=== PATIENT | female | born 1960 | race Caucasian/White ===

== ENCOUNTER → 2024-02-09 08:56 | Outpatient (REF) | payer OTHER, SELFPAY | LOC: RAD 08:56 | PROVIDERS: ATTENDING PHYSICIAN Surgery Vascular Surgery; FAMILY PHYSICIAN Family Medicine | DX: I77.9 Disorder of arteries and arterioles, unspecified (principal) | CPT/HCPCS: 93922; 93925; 93978 ==

== ENCOUNTER 2024-05-24 16:38 | Emergency (ER) | payer OTHER, SELFPAY ==
[2024-05-24 16:44] VITALS: BP 149/75
[2024-05-24 17:07] LABS: % Basophils 0.5 % (0-2); % Eosinophils 1.3 % (0-6); % Immature Granulocytes 0.2 % (0-0.5); % Lymphocytes 26.9 % (20.5-51.1); % Monocytes 5.2 % (1.7-9.3); % Neutrophils 65.9 % (42.2-75.2); Absolute Eosinophils 0.1 10^3/uL (0-0.7); Absolute Lymphocytes 2.3 10^3/uL (1.2-3.4); Absolute Monocytes 0.5 10^3/uL (0.1-0.6); Absolute Neutrophils 5.7 10^3/uL (1.4-6.5); Hematocrit 40.2 % (37.0-47.0); Hemoglobin 14.3 g/dL (12.0-16.0); Mean Corp Hgb Conc. 35.6 g/dL (33.0-37.0); Mean Corpuscular Hgb 32.9 pg (27.0-31.0); Mean Corpuscular Volume 92.6 fL (81.0-99.0); Mean Platelet Volume 11.1 fL (7.4-10.4); Nucleated Red Blood Cells % 0 %; Platelet Count 225 10^3/uL (130-400); Red Blood Cell Count 4.34 10^6/uL (4.20-5.40); White Blood Cell Count 8.6 10^3/uL (4.8-10.8)
[2024-05-24 17:29] LABS: ALT (SGPT) 23 U/L (0-35); AST (SGOT) 18 U/L (14-36); Albumin 3.5 g/dl (3.5-5.0); Alkaline Phosphatase 115 U/L (38-126); Blood Urea Nitrogen 41 mg/dl (7-17); Carbon Dioxide 23 mmol/L (22-30); Chloride 103 mmol/L (98-107); Glucose 346 mg/dl (70-99); Potassium 4.5 mmol/L (3.5-5.1); Sodium 139 mmol/L (135-145); Total Bilirubin 0.8 mg/dl (0.2-1.3); Total Protein 6.4 g/dl (6.3-8.2); eGFR 50.23
[2024-05-24 18:04] VITALS: BP 138/67
--- NOTE | 2024-05-24 22:53 | ED.GENMED ---
History of Present Illness
General
Chief Complaint: Blood Sugar Problem
Source: patient
Exam Limitations: none
Time Seen by Provider: 05/24/24 17:19
Nursing documentation reviewed up to this point in time: agreed with
History of Present Illness
History of Present Illness:
Patient states she had routine labs drawn by PCP on Tuesday. States she received a call today from the office to come to ED, her BS was >400, HgA1c 12. State she had been on Metformin, Novolog and Lantas until last year. States she was testing
her BS frequently and 'didn't need medication anymore.' Brought self to ED today. No complaints.
Past History
Past History
ED Past Medical History: Asthma, CAD, HTN, Hypercholesterolemia, NIDDM, Psychiatric (Depression, ADHD) and Other (Knee problems, meningioma, migraines, ED)
ED Past Surgical History: Brain (Meningioma removal)
Social History
Tobacco: Smoker
Alcohol: None
Drug: None
Living: with family
Review of Systems
Review of Systems
Allergies reviewed?: Yes
All Other Systems: ROS reviewed and negative except as documented in HPI and ROS
Constitutional: Reports no symptoms
Respiratory: Reports no symptoms
Cardiac: Reports no symptoms
ABD/GI: Reports no symptoms
: Reports no symptoms
Musculoskeletal: Reports no symptoms
Skin: Reports no symptoms
Neurological: Reports no symptoms
Psychiatric: Reports no symptoms
Phy Exam
General Physical Exam
General Presentation: well appearing and no apparent distress
General age: appears stated age
General Skin: warm and dry
General Habitus: normal
General Mental: alert
Musculoskeletal Exam
Musculoskeletal Exam: full ROM
Skin Exam
Skin Exam: normal color, warm/dry and no rash
Psychiatric Exam
Psychiatric Exam: normal mood/affect
Course
Orders/Labs/Results
Orders:
Orders
05/24/24 16:59
CMP [Comprehensive Metabolic Panel] Urgent
Complete Blood Count/With Diff Urgent
Abnormal Lab Results
05/24/24
16:59
MCH 32.9 H pg
(27.0-31.0)
MPV 11.1 H fL
(7.4-10.4)
BUN 41 H mg/dl
(7-17)
Creatinine 1.2 H mg/dL
(0.6-1.0)
Glucose 346 H mg/dl
(70-99)
05/24/24 16:59
05/24/24 16:59
Vital Signs
Initial and Last Documented VS:
Initial Vital Signs
Temp Pulse Resp BP Pulse Ox
98.2 F 77 18 149/75 95
05/24/24 16:44 05/24/24 16:44 05/24/24 16:44 05/24/24 16:44 05/24/24 16:44
Last Documented Vital Signs
Temp Pulse Resp BP Pulse Ox
98.2 F 71 18 138/67 95
05/24/24 16:44 05/24/24 18:05 05/24/24 18:05 05/24/24 18:04 05/24/24 18:05
*Critical Care Note
Total Time (30-74mins, 75-104mins- exclusive of procedures): Not Applicable
Update Note
Update Note:
BS 349 in ED, nonfasting. Discussed presentation with her PCP Dr. Luis. She is asymptomatic in dept. WIll discharge home now and she will follow up in office with Dr. Luis in AM to restart her medications. Patient is agreeable to plan.
ED Attending Note
-
Portions of this chart may have been created with voice recognition software.� Occasional wrong word or��sound alike� substitutions may have occurred due to the inherent limitations of voice recognition software.
Discharge Plan
Departure
Patient Disposition: Home (Routine Discharge)
Date of Disposition: 05/24/24
Time of Disposition: 18:11
Patient with high blood pressure during this ER visit?: No
Condition: Good
Covid-19: Not Applicable
Discharge Problem:
Hyperglycemia
Instructions: Type 2 Diabetes (DC)
Prescriptions:
No Action
atorvastatin 80 MG tablet
80 mg PO HS
dextroamphetamine-amphetamine 10 MG tablet
20 mg PO TID
Patient Comments:
01/20/21: Per PDMP, last filled 01/08/21 #90 for 30 days
paroxetine HCl 20 MG tablet
40 mg PO DAILY
aspirin 81 MG tablet,chewable
81 mg PO DAILY
cholecalciferol (vitamin D3) 2,000 UNITS tablet
2,000 units PO DAILY
sennosides [senna] 8.6 mg Tablet
8.6 mg PO HS Qty: 1 0RF
albuterol sulfate 90 mcg/actuation Hfa Aerosol Inhaler
2 puff inhalation R Q4HPRN PRN (Reason: SOB/wheezing) Qty: 1 0RF
calcium carbonate-vitamin D3 [Oyster Shell Calcium-Vit D3] 500 mg-5 mcg (200 unit) Tablet
500 mg PO TID Qty: 1 0RF
Spiriva Respimat 2.5 mcg/actuation Mist
2 puff inhalation R DAILY Qty: 1 0RF
gabapentin 100 mg Capsule
300 mg PO TID Qty: 90 0RF
insulin aspart U-100 [Novolog FlexPen U-100 Insulin] 100 unit/mL (3 mL) Insulin Pen
12 unit SC AC Qty: 15 0RF
acetaminophen 500 mg Tablet
1,000 mg PO TID@0700,1300,2000 PRN (Reason: pain) Qty: 100 0RF
amoxicillin-pot clavulanate 875-125 mg Tablet
1 tab PO Q12 Qty: 6 0RF
oxycodone 5 mg Tablet
5 mg PO Q4HPRN PRN (Reason: moderate or severe pain) Qty: 20 0RF
budesonide-formoterol [Symbicort] 160-4.5 mcg/actuation Hfa Aerosol Inhaler
2 puff inhalation R BID Qty: 10.2 0RF
Xarelto 2.5 mg Tablet
2.5 mg PO BID Qty: 60 0RF
(DME) lancets Misc
See Rx Instructions .Route Qty: 200 0RF
Rx Instructions:
As directed
(DME) pen needle, diabetic [BD Ultra-Fine Becky Pen Needle] 32 gauge x 5/32' needle
See Rx Instructions .Route Qty: 200 0RF
Rx Instructions:
As directed
(DME) Contour Next Test Strips Strip
See Rx Instructions .Route Qty: 200 0RF
Rx Instructions:
As directed
insulin glargine [Lantus Solostar U-100 Insulin] 100 unit/mL (3 mL) insulin pen
29 unit SC QPM Qty: 15 0RF
Referrals:
Balwinder Luis, DO [Family Provider] - Tomorrow
Activity Restrictions/Additional Instructions:
As we discussed, you will need to restart your diabetic medications. Dr. Luis will see you in the office tomorrow. Please call the office in the AM for your appointment time.
Interventions
Interventions:
*Risk Screen - Suicide Last Done: 05/24/24 18:39
*General Assessment Last Done: 05/24/24 18:39
*Neglect/Abuse Screening Last Done: 05/24/24 18:39
ED- Fall Risk Assessment Last Done: 05/24/24 18:40
*Nursing Disposition Last Done: 05/24/24 18:40
ED- Neurological Assessment Last Done: 05/24/24 18:39
Discharge Date and Time
Discharge Date/Time: 05/24/24 18:41
Print Language: KAZAKH
== END 2024-05-24 18:41 | disposition home or self-care (01) ==
LOC: EMR 16:38
PROVIDERS: EMERGENCY PHYSICIAN Emergency Medicine; FAMILY PHYSICIAN Family Medicine
DX: E11.65 Type 2 diabetes mellitus with hyperglycemia (principal); F17.200 Nicotine dependence, unspecified, uncomplicated
CPT/HCPCS: 99283; 80053; 85025

== ENCOUNTER 2024-10-04 16:48 | Inpatient (IN) | payer MEDICARE, SELFPAY ==
[2024-10-04] VITALS (13 sets, daily range): BP systolic 116–196; BP diastolic 72–160
[2024-10-04 13:45] LABS: COVID-19 Antigen Negative (Negative)
--- NOTE | 2024-10-04 14:12 | ED.GENMED ---
History of Present Illness
General
Chief Complaint: Weakness
Source: patient
Exam Limitations: none
Time Seen by Provider: 10/04/24 14:00
History of Present Illness
History of Present Illness:
63yoF with a history of coronary artery disease, peripheral artery disease, type 2 diabetes, hyperlipidemia, and COPD presenting for evaluation of generalized weakness. Patient has been sick for about 2 weeks with cough, fatigue, body aches,
subjective fevers, and decreased appetite. Patient states 'it feels like I am dying.' Her sister whom she lives with is currently hospitalized with influenza A. She is hypoxic on initial exam although she does not feel short of breath.
Past History
Past History
ED Past Medical History: Asthma, CAD, HTN, Hypercholesterolemia, NIDDM, Psychiatric (Depression, ADHD) and Other (Knee problems, meningioma, migraines, ED)
ED Past Surgical History: Brain (Meningioma removal)
Social History
Tobacco: Smoker
Alcohol: None
Drug: None
Living: with family
Phy Exam
General Physical Exam
General Presentation: mild distress
General Skin: warm and dry
General Habitus: normal
General Mental: alert
General Hydration: dry mucous membranes
ENT Exam
ENT Exam: normocephalic
Cardiovascular Exam
Cardiovascular Exam: regular rate/rhythm and no murmur
Pulmonary Exam
Pulmonary Exam: decreased breath sounds and other (Decreased breath sounds with faint expiratory wheezes. Mild-moderate increased WOB although patient able to speak in full sentences. )
Neurological Exam
Neurological Exam: alert
Carmina Coma Scale
Eye Opening: Spontaneous
Verbal Response: Oriented
Motor Response: Obeys Commands
GCS Total Score: 15
Skin Exam
Skin Exam: normal color and warm/dry
Psychiatric Exam
Psychiatric Exam: anxious
Course
Orders/Labs/Results
Orders:
Orders
10/04/24 12:59
Chest [CR Chest - 2 Views ] Urgent
Comment:
Reason For Exam: cough
10/04/24 13:10
COVID-19 Antigen Urgent
Source: Nasal Swab
Influenza A+B Rapid Molecular Urgent
DOM Source: Nasal Swab
Specimen Description:
10/04/24 14:10
0.9% Sodium Chloride 1000 ml [Nss] 1,000 ml IV BOLUS
Ipratropium/Albuterol Sulfate [Duoneb] 3 ml INH R NOW STA
10/04/24 14:17
Complete Blood Count/With Diff Urgent
Comprehensive Metabolic Panel Urgent
Magnesium Urgent
Troponin I Urgent
10/04/24 14:43
Electrocardiogram (*1) Urgent
Reason for Study: Shortness of Breath
EKG- Treatment ONCE
10/04/24 15:16
CefTRIAXone [Rocephin] 2,000 mg IV NOW STA
Doxycycline [Vibramycin] 100 mg PO NOW STA
10/04/24 15:19
Dexamethasone Sod Phosphate [Decadron] 10 mg IV NOW STA
10/04/24 15:23
Oseltamivir Phosphate [Tamiflu] 75 mg PO NOW STA
10/04/24 16:[address] Non Medication Order As Directed
Physician Order: please TT me when med rec complete
Above order entered?: Yes
10/04/24 16:08
Ipratropium/Albuterol Sulfate [Duoneb] 3 ml .ROUTE .STK-MED ONE
10/04/24 16:09
Ipratropium/Albuterol Sulfate [Duoneb] 3 ml INH R NOW ONE
High Flow Oxygen Therapy [O2 Therapy] [RESP] Urgent
Titrate/Wean O2 to maintain O2 sat greater than (%): 91
10/04/24 16:14
Levalbuterol [Xopenex 0.63 mg Inhalant Solution] 0.63 mg INH R NOW STA
Xopenex Reason for Use As Directed
Reason for ordering Xopenex instead of Albuterol: tachycardia
10/04/24 16:16
PULMONARY CONSULT Urgent
Consulting Provider: Don Carlson
Was physician already notified: Yes
10/04/24 16:20
Ondansetron Injectable [Zofran] 4 mg IV NOW STA
10/04/24 16:22
Admit/Transfer Patient As Directed
Co-Sign Provider:
Level of Care: Inpatient admission
Assign to:: IMU- Intermediate Care
Physician / Group: Barb Salas
Diagnosis: hypoxic resp failure, influenza
Reason for Hospitalization: hypoxic resp failure, influenza
Expected length of stay greater than two midnights?: Yes
ELOS- Estimated Length of Stay in days: 5
I certify the patient meets the requirements for IP care: Yes
PRN Pain Medication Management As Directed
May give lesser potent ordered pain med per pt: Yes
preference::
Protocol:: Medication orders for pain may be administered in a
manner that supports deferring to patient preference
when the pt is:
- Requesting an ordered lesser potent pain medication.
Least to most potent pain medications are defined
as: acetaminophen < NSAID < tramadol < opioids
(morphine, oxycodone, hydromorphone).
- Requesting a lesser dose of the same medication IF
ORDERED.
- Requesting a less intrusive route of administration
if both routes are prescribed by the provider (PO <
IV).
10/04/24 16:24
Code Status As Directed
Resuscitation Status: Full Code
10/04/24 16:37
ABG [Arterial Blood Gas] Urgent
%Oxygen/Room Air: 83
Abnormal Lab Results
10/04/24 10/04/24
14:17 16:37
WBC 13.0 H 10^3/uL
(4.8-10.8)
MPV 11.0 H fL
(7.4-10.4)
Abs Immat Gran (auto) 0.1 H 10^3/uL
(0-0.05)
Absolute Neuts (auto) 10.8 H 10^3/uL
(1.4-6.5)
Immature Gran % 0.8 H %
(0-0.5)
Neutrophils % 82.9 H %
(42.2-75.2)
Lymphocytes % 11.4 L %
(20.5-51.1)
pH 7.22 L
(7.35-7.45)
pCO2 52 H mmHg
(32-35)
pO2 119 H mmHg
(83-108)
ABG O2 Sat (Measured) 99.8 H %
(94-98)
Chloride 96 L mmol/L
(98-107)
Carbon Dioxide 32 H mmol/L
(22-30)
BUN 35 H mg/dl
(7-17)
Creatinine 1.3 H mg/dL
(0.6-1.0)
Glucose 182 H mg/dl
(70-99)
Calcium 8.3 L mg/dl
(8.4-10.2)
Alkaline Phosphatase 151 H U/L
(38-126)
Albumin 3.3 L g/dl
(3.5-5.0)
10/04/24 14:17
10/04/24 14:17
Vital Signs
Initial and Last Documented VS:
Initial Vital Signs
Temp Pulse Resp BP Pulse Ox
98.0 F 78 18 143/79 88
10/04/24 12:56 10/04/24 12:56 10/04/24 12:56 10/04/24 12:56 10/04/24 12:56
Last Documented Vital Signs
Temp Pulse Resp BP Pulse Ox
98.0 F 110 39 151/99 96
10/04/24 12:56 10/04/24 17:15 10/04/24 17:15 10/04/24 16:33 10/04/24 17:15
MDM/Problems Addressed
Differential Diagnosis Includes:
63yoF here with fever, cough, fatigue x 2 weeks. Sister currently admitted with the flu. Hx of COPD. Oxygen saturation 88% in triage and 83% during initial exam. Patient placed on 4L NC, not oxygen dependent at baseline. She appears fatigued with
increased WOB although is able to speak in full sentences. Differential diagnosis includes but is not limited to: influenza, other viral illness, pneumonia, COPD exacerbation
Initial ED plan: Check cardiac labs, COVID/flu swab, EKG, and CXR. DuoNeb and IV fluid bolus.
*Critical Care Note
Total Time (30-74mins, 75-104mins- exclusive of procedures): Not Applicable
Update Note
Update Note:
Patient is positive for influenza A. White count is 13. Chest x-ray shows bilateral interstitial pneumonia. IV Rocephin and doxycycline ordered to cover for superimposed bacterial pneumonia. Given hypoxia, patient admitted for further
management. Patient on 4L NC at time of admission.
ED Attending Note
-
Portions of this chart may have been created with voice recognition software.� Occasional wrong word or��sound alike� substitutions may have occurred due to the inherent limitations of voice recognition software.
Discharge Plan
Departure
Patient Disposition: Admit
Date of Disposition: 10/04/24
Time of Disposition: 15:22
Presentation/result/management discussed w/ accepting MD/DO: Hospitalist
Discharge Problem:
Influenza A, Acute hypoxic respiratory failure, Interstitial pneumonia
Interventions
Interventions:
*Risk Screen - Suicide Last Done: 10/04/24 12:56
*General Assessment Last Done: 10/04/24 12:56
*Neglect/Abuse Screening Last Done: 10/04/24 12:56
ED- Fall Risk Assessment Last Done: 10/04/24 14:06
*ED COVID-19 Vaccine History Last Done: 10/04/24 12:56
ED- Cardiac Assessment Last Done: 10/04/24 14:06
ED- Neurological Assessment Last Done: 10/04/24 14:06
ED- Pulmonary Assessment Last Done: 10/04/24 14:06
[2024-10-04] MEDS: NSS 1000 IV ×2 (14:17→23:04)
[2024-10-04] MEDS: DUONEB 3 ML INH ×2 (14:18→16:18)
[2024-10-04 14:26] LABS: % Basophils 0.5 % (0-2); % Immature Granulocytes 0.8 % (0-0.5); % Lymphocytes 11.4 % (20.5-51.1); % Monocytes 4.4 % (1.7-9.3); % Neutrophils 82.9 % (42.2-75.2); Absolute Basophils 0.1 10^3/uL (0-0.2); Absolute Immature Granulocytes 0.1 10^3/uL (0-0.05); Absolute Lymphocytes 1.5 10^3/uL (1.2-3.4); Absolute Monocytes 0.6 10^3/uL (0.1-0.6); Absolute Neutrophils 10.8 10^3/uL (1.4-6.5); Hemoglobin 15.4 g/dL (12.0-16.0); Mean Corp Hgb Conc. 33.5 g/dL (33.0-37.0); Mean Corpuscular Hgb 30.6 pg (27.0-31.0); Mean Corpuscular Volume 91.5 fL (81.0-99.0); Nucleated Red Blood Cells % 0 %; Platelet Count 281 10^3/uL (130-400); Red Blood Cell Count 5.03 10^6/uL (4.20-5.40); Red Cell Dist. Width 12.6 % (11.5-14.5)
[2024-10-04 14:40] LABS: ALT (SGPT) 15 U/L (0-35); AST (SGOT) 23 U/L (14-36); Albumin 3.3 g/dl (3.5-5.0); Alkaline Phosphatase 151 U/L (38-126); Blood Urea Nitrogen 35 mg/dl (7-17); Calcium 8.3 mg/dl (8.4-10.2); Carbon Dioxide 32 mmol/L (22-30); Chloride 96 mmol/L (98-107); Glucose 182 mg/dl (70-99); Potassium 3.7 mmol/L (3.5-5.1); Sodium 138 mmol/L (135-145); eGFR 45.63
[2024-10-04 14:52] LABS: Troponin I < 0.012 ng/ml
[2024-10-04 14:57] LABS: Magnesium 1.9 mg/dl (1.6-2.3)
[2024-10-04] MEDS: VIBRAMYCIN 100 MG PO (15:43)
[2024-10-04] MEDS: DECADRON 10 MG IV (15:44)
[2024-10-04] MEDS: ROCEPHIN 2000 MG IV (15:44)
[2024-10-04] MEDS: TAMIFLU 75 MG PO (15:44)
--- NOTE | 2024-10-04 15:55 | HPS.HSE ---
Addendum entered and electronically signed by Barb Salas MD 10/04/24 17:10:
Case discussed with Dr. Carlson
patient now on 100% O2 - will broaden antibiotics to Vanc/Cefepime/Azithro
change IV Decadron to Solumedrol
schedule duonebs q 4 hours to overnight - levalubterol/atrovent - to be adjusted tomorrow
Addendum entered and electronically signed by Barb Salas MD 10/04/24 16:41:
*IV Decadron 4mg q 8 hours ordered
Addendum entered and electronically signed by Barb Salas MD 10/04/24 16:40:
per famiy patient stopped Gabapentin on her own, therefore will not order here.
Original Note:
Family Physician
-
Family Physician: Balwinder Luis
Chief Complaint
-
cough, fever and weakness
History of Present Illness
Ms. Shelia Hernandes is a 63 yo woman with hx CAD, PAD, COPD, HTN, HLD, NIDDM, CKD III, GERD presents to the ER with generalized weakness, body aches and fevers.
During my examination patient is working hard to breathe. She states she has been feeling sick x 10 days - 'everything hurts' She is currently nauseated, no vomiting. Her sister is currently hospitalized with the flu.
Prior to my exam patient got up to use the bathroom and had diarrhea.
Medical History
Past Medical History
Past Medical History: Reports Other
Additional Past Medical History:
Past medical history reviewed:
Diabetes mellitus
Chronic narcotic dependent
Migraine
Mood disorder
COPD
Chronic smoking
Chronic kidney disease stage III
Chronic lower back pain
Multiple sclerosis
Hypertension
Dyslipidemia
Obesity
Vitamin D deficiency
ADHD
Meningioma
Atrophic right kidney
Coronary artery disease status post 2 stent
GERD
Right foot drop
Surgical history:
Cardiac cath
D&C
Tubal ligation
Meningioma resection in 2015
Social history: Lives at home with the family, smokes a pack a day and denies any alcohol or drug and ambulate with a walker.
Family history: Positive for hypertension, coronary artery disease, stroke and diabetes.
Past Surgical History: Reports Other
Social History
Tobacco: Former Smoker
Family History
Family History: Not pertinent and Other
Allergies / Home Medications
Allergies reflects when Allergies were last updated in [facility]
Home Medications with original date entered in [facility]
Allergy/Medication List:
*awaiting med rec
Review of Systems
-
History Source: Patient
A 12 point ROS was completed and negative except as noted: Yes
Physical Exam
Vital Signs
Vital Signs
Temp Pulse Resp BP Pulse Ox
98.0 F 77 21 172/86 94
10/04/24 12:56 10/04/24 15:15 10/04/24 15:15 10/04/24 15:00 10/04/24 15:15
Physical Exam
General: Other (patient appears tachypneic, in distress )
HEENT: PERRLA
Respiratory: Wheezes
Cardiac: S1/S2 and Tachycardia
GI: Soft and Non Tender
Musculoskeletal: Other (clubbing)
Skin: Warm and Dry; No Rash
Neuro: AO x 3
Psych: Calm
Laboratory Results
-
10/04/24 14:17
10/04/24 14:17
Laboratory Results
Total Bilirubin 1.0 mg/dl (0.2-1.3) 10/04/24 14:17
AST 23 U/L (14-36) 10/04/24 14:17
ALT 15 U/L (0-35) 10/04/24 14:17
Alkaline Phosphatase 151 U/L (38-126) H 10/04/24 14:17
Troponin I < 0.012 ng/ml 10/04/24 14:17
Data Reviewed
-
Diagnostic Radiology: Report Reviewed by me
Lab Data: Labs Reviewed by me
Impression/Plan
-
Ms. Shelia Hernandes is a 63 yo woman with hx CAD, PAD, COPD, HTN, HLD, NIDDM, CKD III, GERD presents to the ER with generalized weakness, fevers; found to be positive for Influenza A with hypoxic resp failure and increased work of breathing.
Triage VS: T 98, P 78, RR 18, BP 143/79, SpO2 83% RA
LABS: WBC 13, Hg 15.4, PLT 281, Na 138, K+ 3.7, Cl 96, CO2 32, BUN 35, Cr 1.3 (baseline), Glucose 182, Mag 1.9, T. Bili 1.0, AST 23, ALT 15, alk Phos 151, Trop < 0.012
CXR
IMPRESSION:
Subtle increased interstitial markings with peribronchial thickening within both lungs, which likely represents bilateral interstitial pneumonia. Patient has positive influenza test.
COVID negative
Influenza A positive
MAR: Decadron, Ceftriaxone/Doxy, Duonebs, NS 1L x 1; Tamiflu 75mg x 1
Acute Hypoxic Respiratory Failure
Influenza A positive
Concern for Superimposed Bacterial Pneumonia
COPD, acute exacerbation
Smoking Hx
-patient given additional duonebs and placed on High Flow in the ER with improvement in work of breathing
-admit to IMU
-continue high flow
-Pulmonary consulted
-s/p Tamiflu 75mg in ER; continue 30mg PO BID for CKD dosing
-continue antibiotics for likely superimposed bacterial infection with Ceftriaxone/Doxycycline
-clear liquid diet for now
-IV Zofran PRN for nausea
-gentle IVF overnight
NIDDM
-hold LABOR SPECIALIST Jardiance and Metformin for now
-ISS low
CAD - LABOR SPECIALIST aspirin/statin
Chronic Pain, Opiate Dependence
-lower dose LABOR SPECIALIST oxycodone - 5mg PRN
Depression - LABOR SPECIALIST Paxil
ADD - LABOR SPECIALIST Adderall
DVT PPx hep subQ
FULL CODE - confirmed on admission
Total Critical Care Time 60 minutes. I was immediately available to the patient and staff. I personally examined, reviewed labs, diagnostic images/reports, interpretations, treatment plans, discussed patient care with other providers and family
or caregivers (if patient is unable to make decisions), entered orders as appropriate and documented the medical record.
--- NOTE | 2024-10-04 16:19 | EDRN ---
@1550 pt yelling that she needed to use the bathroom. pt refusing to use bedpan. pt assisted to bedside commode by ECT. @ that time pt denies SOB or MEREDITH. pt spo2 95% on 4 NC. pt when on commode became extremely tachypneic, mora in color, had large
loose BM, diaphoretic. pt swiftly placed back in bed. pt yelling at staff for her ice pack, pt redirected and made aware of her critical O2. pt spo2 80% on 4L NC. pt placed on NRB. As this RN went to notify , MD Salas entered room. order for duo
neb given. pt also on 6L NC under neb treatment d.t hypoxia and tachypnea. RT paged for HFNC. EKG completed during this episode. after a few minutes pt states breathing is getting better, color improving, tachypnea improving, spo2 improving.
RT placed pt on HFNC 55L @ 100% O2.
--- NOTE | 2024-10-04 16:34 | PHANOTE ---
med rec note- patient said she stopped her Xarelto 2.5mg bid but ecw has her taking it as of 07/03/2024. no current fills for med
[2024-10-04 16:47] LABS: B.E. -7.2 mmol/L; HCO3 21.3 mmol/L (21-28); O2 Saturation % 99.8 % (94-98); PCO2 52 mmHg (32-35); PO2 119 mmHg (83-108); pH 7.22 (7.35-7.45)
--- NOTE | 2024-10-04 17:02 | CON.PUL ---
Consultation
Consultation Request
Date/Time Consultation Requested: 10/04/2024 - 161
Date/Time Consultation Performed: 10/04/2024 - 163
Requesting Provider: Dr. Salas
Performing Provider: Dr. Carlson
Reason for Consultation: SOB/Hypoxia/Flu/PNA
Medical History
-
Chief Complaint: Cough, weakness, SOB
History of Present Illness:
63-year-old female with a past medical history of COPD, depression, proteinuria, CKD, chronic lower back pain, multiple sclerosis, hypertension, hypercholesterolemia, vitamin D deficiency, ADHD, history of meningioma s/p resection (2015), DM type
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 Patient lives with her sister who was admitted last night for the flu. She been feeling sick for
about 1-1/2 weeks. Been having aches and pains, shortness of breath and coughing. Her cough is been productive of mucus (does not know the color). She says that her cough is more dry currently. Her shortness of breath progressed on the morning
prior to arrival. Regarding her history of COPD she does not follow with a electric screw driver operator. In the ER she was afebrile to 90 �F, pulse rate 78, breathing at 18 breaths/min, BP 143/79 saturating 88% on room air, and sats improved to 95% with 4 L/min.
Unfortunately she continued to have shortness of breath and ended up being transition to high flow nasal cannula. Initial labs showed mild leukocytosis to 13, Hb 15.4, creatinine 1.3, glucose 182, troponin negative at <0.012, COVID-19 antigen
negative and flu swab showed she was positive for influenza A. CXR showed prominent interstitial markings with peribronchial thickening within both lungs. This is suspicious for bilateral interstitial pneumonia. In the ER she was given
ceftriaxone, Tamiflu, doxycycline, Decadron 10 mg, DuoNebs and IVF with NS 0.9% x1L. FiO2 requirements unfortunately gi to 100% and pulmonary service consulted for additional management. Patient being admitted to the IMU.
When I saw the patient she was in bed, lethargic but answering my questions appropriately, and on high flow nasal cannula at 50 L/min, FiO2: 100%. She was saturating 95% with heart rate 109 and BP 151/99. She currently denies chest pain, GÓMEZ,
diarrhea, fevers or chills.
PMHx: Migraine headaches, COPD, depression, subnephrotic proteinuria, CKD, tympanic sclerosis, chronic bilateral lower back pain, history of MS, hypertension, hypercholesterolemia, obesity, vitamin D deficiency, ADHD, history of meningioma, atrophic
right kidney, CAD s/p stenting x 2, GERD, DM type II, right foot drop, history of tobacco use
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
Past Medical History
Past Medical History: Other (Above as per HPI)
Past Surgical History: Other (Above as per HPI)
Social History
Tobacco: Former Smoker (Former smoker, smoked 2 PPD x 30-35 years; still vaping nicotine)
Alcohol: None
Drug: None
Personal:
Family History
Family History: Cancer (Father: Esophageal cancer), Diabetes (Sibling) and Other (Mother: CVA, aneurysm; sibling: Multiple sclerosis)
Allergies / Home Medications
Allergies
Allergy/AdvReac Type Severity Reaction Status Date / Time
codeine Allergy Unknown Verified 10/04/24 12:58
ibuprofen Allergy Hives Verified 10/04/24 16:21
naproxen sodium [From Aleve] Allergy Hives Verified 10/04/24 12:58
Home Medications
�Medication �Instructions �Recorded �Confirmed �Last Taken �Type
aspirin 81 mg chewable tablet 81 mg PO DAILY Blood clot 01/20/21 10/04/24 01/20/21 History
prevention/tx
atorvastatin 80 mg tablet 80 mg PO HS High cholesterol 01/20/21 10/04/24 01/19/21 History
albuterol sulfate 90 mcg/actuation 2 puff inhalation R Q4HPRN PRN 10/26/22 10/04/24 Unknown Rx
aerosol inhaler SOB/wheezing #1 g
dextroamphetamine-amphetamine 20 20 mg PO TID Neurological Condition 10/04/24 10/04/24 Unknown History
mg tablet (Adderall)
empagliflozin 25 mg tablet 25 mg PO DAILY Diabetes 10/04/24 10/04/24 Unknown History
(Jardiance)
gabapentin 300 mg capsule 300 mg PO TID Pain 10/04/24 10/04/24 Unknown History
metformin 500 mg tablet,extended 1,000 mg PO BID Diabetes 10/04/24 10/04/24 Unknown History
release 24 hr
oxycodone 15 mg tablet 15 mg PO Q6HPRN PRN severe pain 10/04/24 10/04/24 Unknown History
paroxetine HCl 40 mg tablet (Paxil) 60 mg PO DAILY Mental Health 10/04/24 10/04/24 Unknown History
Review of Systems
-
History Source: Patient
All other systems: Negative unless noted
Vitals / Labs / Diagnostic Testing
Vital Signs
Temp Pulse Resp BP Pulse Ox
98.0 F 102 23 132/102 98
10/04/24 17:35 10/04/24 18:20 10/04/24 18:20 10/04/24 18:00 10/04/24 18:20
Lab Data
10/04/24 14:17
10/04/24 14:17
Laboratory Results
10/04/24 10/04/24
16:37 18:06
pH 7.22 L 7.36
pCO2 52 H 37 H
pO2 119 H 143 H
HCO3 21.3 20.9 L
O2 Delivery Level %oxygen/room air 83
Microbiology
10/04/24 13:10 Nasal Swab Influenza Types A & B ([facility]) - Final
Influenza A Positive, NAAT
Diagnostic Testing:
Physical Exam
-
HEENT: Normocephalic and Anicteric
Cardiovascular: Irregular Rhythm, Rub (negative), Peripheral Edema (negative) and Other (Normal rate)
Respiratory: Wheeze (Occasional wheezing heard in the upper lobes bilaterally), Rales (negative), Rhonchi (negative), Accessory Resp Muscle Use (mild) and Other (Grossly diminished breath sounds bilaterally)
GI: Soft, Non Distended, Non Tender and Normal Bowel Sounds
Neurology: Tremors (negative) and Other (Lethargic but answering all questions appropriately)
Skin: Warm and Dry
General: Respiratory Distress (mild), Fever (negative) and Chills (negative)
Assessment
-
Assessment: 63-year-old female with a past medical history of COPD, depression, proteinuria, CKD, chronic lower back pain, multiple sclerosis, hypertension, hypercholesterolemia, vitamin D deficiency, ADHD, history of meningioma s/p resection
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 Patient lives with her sister who was admitted last night for the flu. She been
feeling sick for about 1-1/2 weeks. Been having aches and pains, shortness of breath and coughing. Her cough is been productive of mucus (does not know the color). She says that her cough is more dry currently. Her shortness of breath progressed
on the morning prior to arrival. Regarding her history of COPD she does not follow with a electric screw driver operator. In the ER she was afebrile to 90 �F, pulse rate 78, breathing at 18 breaths/min, BP 143/79 saturating 88% on room air, and sats improved to
95% with 4 L/min. Unfortunately she continued to have shortness of breath and ended up being transition to high flow nasal cannula. Initial labs showed mild leukocytosis to 13, Hb 15.4, creatinine 1.3, glucose 182, troponin negative at <0.012,
COVID-19 antigen negative and flu swab showed she was positive for influenza A. CXR showed prominent interstitial markings with peribronchial thickening within both lungs. This is suspicious for bilateral interstitial pneumonia. In the ER she was
given ceftriaxone, Tamiflu, doxycycline, Decadron 10 mg, DuoNebs and IVF with NS 0.9% x1L. FiO2 requirements unfortunately gi to 100% and pulmonary service consulted for additional management. Patient being admitted to the IMU.
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
meningioma, atrophic right kidney, CAD s/p stenting x 2, GERD, DM type II, right foot drop, history of tobacco use
Impression:
#Acute respiratory failure with hypoxia + hypercapnia requiring high flow nasal cannula
#Acute viral pneumonia due to influenza A with bacterial superinfection
#COPD exacerbation due to above
#Leukocytosis likely due to above
#DM type II c/b hyperglycemia (last HbA1c: 12.1 on 10/08/2022)
#CKD (baseline creatinine 1.3�1.5)
#Former tobacco use disorder with COPD
#Continued nicotine vape use
#Multiple sclerosis
#Hypertension
#CAD s/p stenting x 2
#GERD
#Depression
Plan:
- Continue with high flow nasal cannula and titrate FiO2 to keep SpO2 at 88-95%
- Aspiration precautions with keeping HOB >30-45�
- Xopenex + Atrovent q4hr with prn doses in between for breakthrough symptoms
- Start systemic steroids with Solu-Medrol 40 mg IV q8hr
- Maintain euglycemia while on high-dose steroids with goal BG >100 and <180; re-check A1C
- Initial blood gas showed she was acutely hypercapnic with pH 7.22, pCO2 52. Ideally would place her onto BiPAP but due to her lethargic mental status with nausea, this is currently contraindicated. Blood gas was repeated about a 1.5 hours later
showing improvement in pCO2 going down to 37 with pH 7.36; hold off on BiPAP for now until mentation improves and nausea resolves and continue trending blood gas to ensure pH + pCO2 remained stable
- Tamiflu X 5 days
- Broad-spectrum antibiotics, currently on cefepime/IV vancomycin/azithromycin
- Trend QTc while on Zithromax (417ms today)
- Check urine antigens for Legionella + strep pneumonia
- Check blood cultures and check sputum culture if she can provide a decent sample
- Check MRSA swab and if negative then DC IV vanco
- Check procal for trending power
- Antitussants prn
- Mucolytics
- Antiemetics prn; monitor QTc
- Incentive spirometer once she improves
- Replete electrolytes with K>4, Mg>2
- DVT ppx: HSQ - raise to q8hr
- High risk situation: Admit to the IMU; low threshold to intubate her if hypoxia deteriorates further; currently she is full code
Pulmonary service will continue to follow along. Outpatient pulmonary office follow-up will also be arranged.
Data:
CXR 10/04/2024: Subtle increased interstitial markings with peribronchial thickening within both lungs, which likely represents bilateral interstitial pneumonia. Patient has positive influenza test.
Total time spent today was 76 minutes for this encounter. Time includes reviewing laboratory test/imaging results, reviewing pertinent medical records, obtaining and reviewing medical history, performing an appropriate exam, ordering medications,
tests and procedures. Time also includes documentation of this encounter, coordinating patient care and communicating with other healthcare professionals. Total time does not include separately billed tests performed on this date of service.
[2024-10-04] MEDS: ZOFRAN 4 MG IV (18:03)
[2024-10-04] MEDS: ZITHROMAX INFUSION 250 IV (18:03)
[2024-10-04 18:12] LABS: B.E. -3.9 mmol/L; HCO3 20.9 mmol/L (21-28); O2 Saturation % 99.9 % (94-98); PCO2 37 mmHg (32-35); PO2 143 mmHg (83-108); pH 7.36 (7.35-7.45)
[2024-10-04 18:14] LABS: O2 Therapy %Oxygen/Room Air 83
[2024-10-04] MEDS: ATROVENT NEBULES 0.5 MG INH ×2 (19:25→22:51)
[2024-10-04] MEDS: XOPENEX 0.63 MG INHALANT SOLUTION INH ×2 (19:26→22:51)
[2024-10-04] MEDS: ATROVENT NEBULES INH (19:26)
--- NOTE | 2024-10-04 19:29 | PHA.VAN.IN ---
Assessment
- Assessment
Renal Function: Appears similar to baseline (05/24/24 SCR = 1.2)
Concomitant Antimicrobials: CEFEPIME
- Previous Dosing Experience
Previous Regimen: 1250MG IV Q12H
Date of Regimen: 10/10/22
Provided Trough of: 15.3 PREDICTED
Provided AUC of: 522 PREDICTED
Patient's SCR is: Similar to previous dosing experience (10/10/22 SCR = 1.2)
Patient's weight is: Decreased compared to previous dosing experience (10/10/22 WT = 110.8 KG)
AUC Dosing Plan
- Dosing Variables
Dosing Weight (kg): 84.1
Dosing CrCl (ml/min): 48
Vd coefficient (L/kg): 0.7
- Empiric Dosing
Initial / Loading Dose: 2GM
Maintenance Regimen: 1250MG IV Q24H
Estimated AUC (mcg*h/mL): 496
Estimated Peak (mcg*h/mL): 32.5
Estimated Trough (mcg/ml): 12
Estimated Half Life (H): 15.7
Pharmacokinetics Vancomycin I
- -
Patient Age: 63
Patient Sex: Female
Vancomycin Day #: 1
Indication: Pulmonary/Respiratory
Requesting Provider: SPRING
Height / Weight:
Height 5 ft 7 in
Actual Weight 84.1 kg
- Vital Signs / Lab Results
Temp Pulse Resp BP Pulse Ox
98.0 F 102 23 132/102 98
10/04/24 17:35 10/04/24 18:20 10/04/24 18:20 10/04/24 18:00 10/04/24 18:20
Lab Results - Hematology
10/04/24
14:17
WBC 13.0 H
Lab Results - Chemistry
10/04/24
14:17
BUN 35 H
Creatinine 1.3 H
Albumin 3.3 L
Microbiology Results
10/04/24 13:10 Influenza Types A & B ([facility]) - Final
Nasal Swab Influenza A Positive, NAAT
[2024-10-04] MEDS: VANCOCIN 540 MG IV (19:36)
[2024-10-04] MEDS: MUCINEX 600 MG PO (20:51)
[2024-10-04] MEDS: SOLU-MEDROL PF 40 MG IV (23:07)
[2024-10-04] MEDS: HEPARIN 5000 UNITS SC (23:08)
[2024-10-04] MEDS: LIPITOR 80 MG PO (23:20)
[2024-10-04] MEDS: STERILE WATER FOR INJECTION 10 ML IV (23:20)
[2024-10-04] MEDS: MAXIPIME 2000 MG IV (23:20)
[2024-10-04 23:31] LABS: Glucose - Point of Care 242 mg/dl (70-99)
--- NOTE | 2024-10-04 23:45 | PTCARENOTE ---
Resumed care of pt as an IMU hold. Pt AAOx3, HR in the 80's in NSR with frequent PVC's on the monitor. POX 99% on Hi flow 50L/55%. Lungs dec with in/ex wheezes, course. Non productive occasional cough. + bowel, round obese abd. Pt reports loose
stools yesterday. Pt inc of urine. Brief in place. Weak cold pedal pulses. Right wrist int infusing NSS @60ml/hr as ordered. Pt resting comfortably at this time. Denies any complaints, will continue to monitor.
[2024-10-05] VITALS (15 sets, daily range): BP systolic 137–168; BP diastolic 65–92
[2024-10-05] MEDS: XOPENEX 0.63 MG INHALANT SOLUTION INH ×3 (04:09→11:53)
[2024-10-05] MEDS: ATROVENT NEBULES 0.5 MG INH ×3 (04:09→11:53)
[2024-10-05] MEDS: SOLU-MEDROL PF 40 MG IV ×3 (05:28→21:32)
[2024-10-05] MEDS: VANCOCIN 275 MG IV (05:28)
[2024-10-05 05:34] LABS: Venous Blood Gas B.E. -1.6 mmol/L (-4 to +4); Venous Blood Gas HCO3 23.7 mmol/L (22-27); Venous Blood Gas O2 Sat % 99.7 %; Venous Blood Gas pCO2 41 mmHg (35-48); Venous Blood Gas pH 7.37 (7.32-7.43); Venous Blood Gas pO2 165 mmHg (30-50)
[2024-10-05 05:39] LABS: % Basophils 0.5 % (0-2); % Eosinophils 1.2 % (0-6); % Immature Granulocytes 1.4 % (0-0.5); % Lymphocytes 8.2 % (20.5-51.1); % Monocytes 1.5 % (1.7-9.3); % Neutrophils 87.2 % (42.2-75.2); Absolute Basophils 0.1 10^3/uL (0-0.2); Absolute Eosinophils 0.2 10^3/uL (0-0.7); Absolute Immature Granulocytes 0.2 10^3/uL (0-0.05); Absolute Lymphocytes 1.1 10^3/uL (1.2-3.4); Absolute Monocytes 0.2 10^3/uL (0.1-0.6); Absolute Neutrophils 11.4 10^3/uL (1.4-6.5); Hematocrit 44.9 % (37.0-47.0); Hemoglobin 15.4 g/dL (12.0-16.0); Mean Corp Hgb Conc. 34.3 g/dL (33.0-37.0); Mean Corpuscular Hgb 30.9 pg (27.0-31.0); Mean Corpuscular Volume 90.2 fL (81.0-99.0); Mean Platelet Volume 11.1 fL (7.4-10.4); Nucleated Red Blood Cells % 0 %; Platelet Count 319 10^3/uL (130-400); Red Blood Cell Count 4.98 10^6/uL (4.20-5.40); Red Cell Dist. Width 12.6 % (11.5-14.5)
[2024-10-05 06:02] LABS: ALT (SGPT) 12 U/L (0-35); AST (SGOT) 17 U/L (14-36); Albumin 2.8 g/dl (3.5-5.0); Alkaline Phosphatase 141 U/L (38-126); Blood Urea Nitrogen 43 mg/dl (7-17); Carbon Dioxide 23 mmol/L (22-30); Chloride 102 mmol/L (98-107); Estimated Creatinine Clearance 37 ml/min; Glucose 220 mg/dl (70-99); Magnesium 1.8 mg/dl (1.6-2.3); Phosphorus 5.4 mg/dl (2.5-4.5); Potassium 4.1 mmol/L (3.5-5.1); Sodium 138 mmol/L (135-145); Total Bilirubin 0.5 mg/dl (0.2-1.3); eGFR 33.07
[2024-10-05 06:09] LABS: NT-proBNP 1470 pg/ml
[2024-10-05 06:12] LABS: Procalcitonin 1.83 ng/ml (0.0-0.25)
[2024-10-05 06:49] LABS: Hepatitis C Antibody Negative (Negative)
--- NOTE | 2024-10-05 08:06 | PHA.VAN.FU ---
Vancomycin Assessment / Plan
- Assessment
Renal Function: SCR Increasing
WBC's are: Stable
In the past 24 hrs, patient has been: Afebrile
Concomitant Antimicrobials: cefepime, azithromycin
- Dosing Plan
Adjust Regimen to: dosing by level
Dosing Comments: received 2g load 10/04 19:36 + 1250mg 10/05 05:28
- Monitoring Plan
Random Level: 10/06 0600
MRSA Screen: Ordered per protocol
- Follow Up
Pharmacy will continue to follow.
Vancomycin Follow UP
- -
Patient Age: 63
Patient Sex: Female
Vancomycin Day #: 2
Indication: Pulmonary/Respiratory
Requesting Provider: Dr. Salas
Pertinent Antimicrobial Allergies:
no pertinent antibiotic allergies
Height / Weight:
Height 5 ft 7 in
Actual Weight 84.1 kg
Pertinent Past Medical History: flu +
- Vital Signs / Lab Results
Temp Pulse Resp BP Pulse Ox
97.5 F 75 17 147/81 98
10/05/24 04:00 10/05/24 05:50 10/05/24 05:50 10/05/24 05:00 10/05/24 05:50
Lab Results - Hematology
10/04/24 10/05/24
14:17 05:09
WBC 13.0 H 13.0 H
Lab Results - Chemistry
10/04/24 10/05/24
14:17 05:10
BUN 35 H 43 H
Creatinine 1.3 H 1.7 H
Estimated Creat Clear 37
Albumin 3.3 L 2.8 L
Microbiology Results
10/04/24 13:10 Influenza Types A & B ([facility]) - Final
Nasal Swab Influenza A Positive, NAAT
[2024-10-05 09:10] LABS: Glucose - Point of Care 210 mg/dl (70-99)
[2024-10-05] MEDS: MUCINEX 600 MG PO ×2 (09:11→21:31)
[2024-10-05] MEDS: HEPARIN 5000 UNITS SC ×2 (09:11→15:57)
[2024-10-05] MEDS: LOW STRENGTH ASPIRIN 81 MG PO (09:11)
--- NOTE | 2024-10-05 09:35 | W.PN.PUL3 ---
Today's Communication / Plan
-
Antibiotics with cefepime + Zithromax; okay to DC IV vancomycin given MRSA swab is negative
Solu-Medrol, currently 40 mg IV every 8 hours � tomorrow can hopefully switch to 40 mg IV every 12hr if she is continuing to do well
Titrate down O2 flow rate while keeping SpO2 88-95%
Mucolytics
Trend procal
Follow-up cultures and check sputum culture if she can produce a decent sample
Tamiflu for 5 days
Start nocturnal BiPAP and trend blood gas to assure hypercapnia remained stable
Nicotine patch given she vapes nicotine
Downgrade to telemetry
Pulmonary service will continue to follow along and outpatient follow-up will be arranged
Assessment
-
Assessment: 63-year-old female with a past medical history of COPD, depression, proteinuria, CKD, chronic lower back pain, multiple sclerosis, hypertension, hypercholesterolemia, vitamin D deficiency, ADHD, history of meningioma s/p resection
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 Patient lives with her sister who was admitted last night for the flu. She been
feeling sick for about 1-1/2 weeks. Been having aches and pains, shortness of breath and coughing. Her cough is been productive of mucus (does not know the color). She says that her cough is more dry currently. Her shortness of breath progressed
on the morning prior to arrival. Regarding her history of COPD she does not follow with a management developer. In the ER she was afebrile to 90 �F, pulse rate 78, breathing at 18 breaths/min, BP 143/79 saturating 88% on room air, and sats improved to
95% with 4 L/min. Unfortunately she continued to have shortness of breath and ended up being transition to high flow nasal cannula. Initial labs showed mild leukocytosis to 13, Hb 15.4, creatinine 1.3, glucose 182, troponin negative at <0.012,
COVID-19 antigen negative and flu swab showed she was positive for influenza A. CXR showed prominent interstitial markings with peribronchial thickening within both lungs. This is suspicious for bilateral interstitial pneumonia. In the ER she was
given ceftriaxone, Tamiflu, doxycycline, Decadron 10 mg, DuoNebs and IVF with NS 0.9% x1L. FiO2 requirements unfortunately gi to 100% and pulmonary service consulted for additional management. Patient being admitted to the IMU.
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
meningioma, atrophic right kidney, CAD s/p stenting x 2, GERD, DM type II, right foot drop, history of tobacco use
Impression:
#Acute respiratory failure with hypoxia + hypercapnia requiring high flow nasal cannula --> now on midflow nasal cannula
#Acute viral pneumonia due to influenza A with bacterial superinfection
#COPD exacerbation due to above
#Leukocytosis likely due to above
#DM type II c/b hyperglycemia (last HbA1c: 12.1 on 10/08/2022)
#DUTCH on CKD (baseline creatinine 1.3�1.5)
#Former tobacco use disorder with COPD
#Continued nicotine vape use
#Multiple sclerosis
#Hypertension
#CAD s/p stenting x 2
#GERD
#Depression
Plan:
- Patient is doing much better both subjectively and objectively, now off of high flow nasal cannula FiO2 100% and down to mid flow nasal cannula, currently at 7 L/min
- Continue supplemental O2 and titrate O2 flow rate to keep SpO2 at 88-95%
- Aspiration precautions with keeping HOB >30-45�
- Ok to change xopenex + Atrovent q4hr to DuoNebs QID with prn doses in between for breakthrough symptoms
- Continue systemic steroids with Solu-Medrol 40 mg IV q8hr v--> can hopefully start to wean tomorrow to 40mg IV q12hr
- Maintain euglycemia while on high-dose steroids with goal BG >100 and <180; A1C: 7.7 (10/05/2024)
- Initial blood gas showed she was acutely hypercapnic with pH 7.22, pCO2 52. She was lethargic and nauseous initially in the ER so BiPAP was not an option given it was contraindicated. Repeat repeat blood gas 1.5 hours later showed improvement
with pH 7.36, pCO2 37. This has remained stable with blood gas this morning on 10/05/2024, with pH 7.37 and pCO2 41. Continue to trend to assure her hypercapnia remained stable
- Recommend to start nocturnal BiPAP - she is agreeable to this
- Tamiflu X 5 days
- Broad-spectrum antibiotics, currently on cefepime/IV vancomycin/azithromycin
- Trend QTc while on Zithromax (417ms today)
- Check urine antigens for Legionella + strep pneumonia
- Follow up blood cultures (drawn 10/05/2024) and check sputum culture if she can provide a decent sample
- MRSA swab is negative --> recommend to DC IV vanco
- Procal elevated at 1.83 � continue to monitor for trending power
- Antitussants prn
- Mucolytics
- Given that she vapes nicotine, start nicotine patch 7mg
- Antiemetics prn; monitor QTc
- Incentive spirometer once she improves
- Replete electrolytes with K>4, Mg>2
- DVT ppx: HSQ
- Full Code
- She was admitted to the IMU on admission due to her severe hypoxia. Now that her hypoxia has improved and she is doing better, can downgrade to telemetry.
Pulmonary service will continue to follow along. Outpatient pulmonary office follow-up will also be arranged.
Data:
CXR 10/04/2024: Subtle increased interstitial markings with peribronchial thickening within both lungs, which likely represents bilateral interstitial pneumonia. Patient has positive influenza test.
Total time spent today was 36 minutes for this encounter. Time includes reviewing laboratory test/imaging results, reviewing pertinent medical records, obtaining and reviewing medical history, performing an appropriate exam, ordering medications,
tests and procedures. Time also includes documentation of this encounter, coordinating patient care and communicating with other healthcare professionals. Total time does not include separately billed tests performed on this date of service.
Subjective Data
-
Date of Service:
Date of Service: October 05, 2024
Chief Complaint: Pulmonary Follow Up
Subjective:
Patient seen and evaluated this morning. She is doing remarkably better, currently on 7 L/min via midflow nasal cannula, saturating 97% with heart rate 71 BP 146/65. Her shortness of breath has improved and she denies a cough. Also denies
nausea/vomiting, or abdominal pain. She actually has a good diet and wants to eat. Denies chest pain, fevers or chills.
Review of Systems
General: Other (Negative unless mentioned above)
Objective Data
Data Reviewed
Vital Signs / I&O / Oxygen:
Vital Signs
Temp Pulse Resp BP Pulse Ox
97.7 F 71 20 157/81 99
10/05/24 08:35 10/05/24 08:44 10/05/24 08:44 10/05/24 08:00 10/05/24 08:44
Intake and Output
10/04/24 10/05/24 10/06/24
06:59 06:59 06:59
Intake Total 1155 / 1155
Balance 1155 / 1155
SaO2 99
Nasal Cannula flow liters per 50
minute
Physical Exam
General: Respiratory Distress (negative), Comfortable, Chills (negative) and Sweats (negative)
HEENT: Normocephalic and Anicteric
Cardiovascular: S1-S2 and Peripheral Edema (negative)
Respiratory: Wheeze (Bilaterally), Crackles (Bilaterally), Rhonchi (Bilaterally), Non-Labored Respirations and Stridor (Bilaterally)
GI: Soft, Non Distended, Non Tender and Normal Bowel Sounds
Neurology: AO x 3 and Tremors (Bilaterally)
Skin: Warm, Dry, Cyanosis (Bilaterally) and Jaundice (Bilaterally)
Labs/Micro/Reports
Lab Data
10/05/24 05:09
10/05/24 05:10
Laboratory Results
10/04/24 10/04/24
16:37 18:06
pH 7.22 L 7.36
pCO2 52 H 37 H
pO2 119 H 143 H
HCO3 21.3 20.9 L
O2 Delivery Level %oxygen/room air 83
Microbiology
10/04/24 13:10 Nasal Swab Influenza Types A & B ([facility]) - Final
Influenza A Positive, NAAT
[2024-10-05] MEDS: NOVOLOG FLEXPEN-LOW RESISTANCE 2 UNITS SC (10:24)
[2024-10-05 10:39] LABS: Glycohemoglobin (HgbA1c) 7.7 % (4.0-5.6)
[2024-10-05] MEDS: ADDERALL PO (11:13)
[2024-10-05] MEDS: ADDERALL 20 MG PO ×2 (11:13→17:38)
[2024-10-05] MEDS: PAXIL 60 MG PO (11:14)
[2024-10-05] MEDS: TAMIFLU 30 MG PO ×2 (11:14→21:32)
--- NOTE | 2024-10-05 11:17 | PTCARENOTE ---
[place] Text to Dr. Hood about pt's continued loose/watery stools, asked if we want to send to lab for testing.
--- NOTE | 2024-10-05 11:25 | W.PN.HOSP.TC ---
Today's Communication/Plan
-
Transfer from IMU to telemetry
Continue with Tamiflu and empirical antibiotics
Continue with IV fluids till oral intake is adequate
Follow BMP in a.m.
Assessment / Plan
Assessment / Plan
Ms. Sehlia Hernandes is a 63 yo woman with hx CAD, PAD, COPD, HTN, HLD, NIDDM, CKD III, GERD presents to the ER with generalized weakness, fevers; found to be positive for Influenza A with hypoxic resp failure and increased work of breathing.
CXR
IMPRESSION:
Subtle increased interstitial markings with peribronchial thickening within both lungs, which likely represents bilateral interstitial pneumonia. Patient has positive influenza test.
COVID negative
Influenza A positive
Acute Hypoxic hypercapnic respiratory Failure
Influenza A positive
Interstitial pneumonia
COPD, acute exacerbation
Smoking Hx
-Patient with improved clinical picture and as well as oxygenation
-Continue with oxygen via nasal cannula and wean as able. Transfer for IMU level of care to telemetry.
-s/p Tamiflu 75mg in ER; continue 30mg PO BID for CKD dosing
-continue antibiotics pending culture data. Interstitial pneumonia suspect is probably viral. With no consolidation or lobar pneumonia doubt bacterial. Elevated procalcitonin may be function of renal failure.
-Advance diet
-Advised to quit smoking
DUTCH on chronic kidney disease stage III
Elevated creatinine since admission noted. Patient is also having loose stool since admission. Check for norovirus and C. difficile. Continue with IV fluid support till oral intake is adequate. Check BMP in AM.
NIDDM
-hold SCRAPER HAND Jardiance and Metformin for now
-ISS low
-Hemoglobin A1c 7.7
CAD - SCRAPER HAND aspirin/statin
Chronic Pain, Opiate Dependence
-lower dose SCRAPER HAND oxycodone - 5mg PRN
Depression - SCRAPER HAND Paxil
ADD - SCRAPER HAND Adderall
DVT PPx hep subQ
FULL CODE
Discussed with RN
Total time spent on today's encounter was 52 minutes which included time spent in counseling the patient/family regarding diagnosis and treatment plan as listed above, goals of care, and symptom management. Case was discussed with nursing staff,
specialists, and care coordinators/case management. All labs and imaging personally reviewed by me. Remainder the time spent in detailed review of previous records, lab data, imaging, and other medical provider documentation.
Anticipated Discharge: > 48 hours
Subjective/Interval History
-
Date of Service: October 05, 2024
Feeling improved.
Prior coming into the hospital she was feeling crappy, cough, cold sweats. Not much of shortness of breath but she was noted to be quite hypoxic.
Denies any chest pain.
No nausea vomiting or abdominal pain but since last evening she had 4 loose bowel movements which is new for her.
Her family is sick in fact her twin sister is also admitted to hospital with influenza infection.
Objective Data
-
Labs:
Laboratory Results
10/05/24 10/05/24
05:09 05:10
WBC 13.0 H
Hgb 15.4
Hct 44.9
Plt Count 319
Sodium 138
Potassium 4.1
Chloride 102
Carbon Dioxide 23
BUN 43 H
Creatinine 1.7 H
Glucose 220 H
Calcium 8.0 L
Total Bilirubin 0.5
AST 17
ALT 12
Alkaline Phosphatase 141 H
Vital Signs:
Vital Signs
Temp Pulse Resp BP Pulse Ox
98.9 F 73 18 144/81 97
10/05/24 11:18 10/05/24 11:15 10/05/24 11:15 10/05/24 11:00 10/05/24 11:18
I&O
10/04/24 10/05/24 10/06/24
06:59 06:59 06:59
Intake Total 1155 / 1155 240 / 240
Balance 1155 / 1155 240 / 240
Review of Systems
-
Cardiac: Denies Chest Pain
Abdomen/GI: Denies Abdominal Pain
Neuro: Denies Dizzy
Physical Exam
-
General: No Apparent Distress
HEENT: Moist Mucous Membranes
Respiratory: Wheezes (Bilateral), Non Labored Respirations and Other (Improved oxygenation-currently on nasal cannula at 6 L); Negative Crackles or Accessory Resp Muscle Use
Cardiac: Regular Rhythm and S1/S2; Negative Tachycardic
GI: Soft and Nontender
Musculoskeletal: No Edema
Neuro: AO x 3
Psych: Calm; Negative Confused
Data Reviewed
-
Labs: Labs Reviewed by me
[2024-10-05 11:48] LABS: Glucose - Point of Care 296 mg/dl (70-99)
--- NOTE | 2024-10-05 11:49 | PN.CDI ---
CDI
- -
CDI:
Physician Documentation Request
Admit Date: 10/04/24 16:48
Dear Doctor Erwin,
Clinical Indicators:
Patient admitted with Influenza A, pneumonia, and acute hypoxic/hypercapnic respiratory failure.
WBC on admission
10/04/24
14:17
WBC 13.0 H
HR/RR trend on admission:
10/04/24
16:00 10/04/24
17:00 10/04/24
18:00
Pulse 138 112 104
Resp Rate 32 30 29
10/04/24
19:00 10/04/24
20:00
Pulse 96 99
Resp Rate 22 25
Please clarify which of the following most accurately describes the status of the patient's infection:
Sepsis, POA
- Systemic manifestations of infection, with 2 or more SIRS criteria which include:
- Fever >100.4 degrees F or hypothermia < 96.8 degrees F
- Leukocytosis - WBC > 12,000 or leukopenia - WBC < 4,000 or > 10% bands
- Tachycardia > 90 beats per minute
- Tachypnea - RR > 20 breaths per minute or PaCO2 , 32mmHg
Source: Merck Manual 2013
Severe Sepsis with associated respiratory failure, POA
Influenza A Pneumonia Only, Without Systemic Illness
Other
Use of terms such as suspected, likely, concern for, or probable (associated with a specific diagnosis that is being evaluated, monitored, or treated as if it exists) are acceptable and can be coded in the inpatient setting, when documented at the
time of discharge.
Thank you,
Gracia Berger RN BSN
CDI Specialist
available via tiger text
Please use your independent medical judgment in providing your response.
[2024-10-05] MEDS: NOVOLOG FLEXPEN-LOW RESISTANCE 3 UNITS SC ×2 (13:07→17:38)
[2024-10-05] MEDS: NSS 1000 IV (13:14)
[2024-10-05] MEDS: MAXIPIME 2000 MG IV (13:17)
[2024-10-05] MEDS: STERILE WATER FOR INJECTION 10 ML IV (13:17)
[2024-10-05] MEDS: DUONEB 3 ML INH ×2 (15:42→19:37)
--- NOTE | 2024-10-05 16:08 | PTCARENOTE ---
Called [facility] and gave verbal report to receiving RN. Pt transported by quality control lab tech on stretcher, 4L midflow. Pt refused nicotine patch.
[2024-10-05 16:34] LABS: Glucose - Point of Care 259 mg/dl (70-99)
[2024-10-05] MEDS: ZITHROMAX INFUSION 250 IV (17:38)
--- NOTE | 2024-10-05 18:15 | PTCARENOTE ---
Received pt from ED at 16:20. Pt pulled over from stretcher to bed w/o incident. Pt AAOx3, able to make needs known. Tele box #6 applied. NSR on monitor. Lungs coarse with inspiratory wheeze, on 4LMF. Pt reported too weak to get up and use the
commode. Continent of bowel/bladder, used bedpan instead. Skin intact. NS@60ml/hr through R FA. IV zithromax hung. VSS. Call zaman and belongings within reach. Care ongoing.
[2024-10-05] MEDS: LIPITOR 80 MG PO (21:31)
[2024-10-05 21:39] LABS: Glucose - Point of Care 284 mg/dl (70-99)
[2024-10-06] VITALS (7 sets, daily range): BP systolic 114–181; BP diastolic 62–89; BMI 29.8
[2024-10-06] MEDS: HEPARIN 5000 UNITS SC ×4 (00:26→23:42)
[2024-10-06] MEDS: STERILE WATER FOR INJECTION 10 ML IV ×3 (00:27→23:42)
[2024-10-06] MEDS: MAXIPIME 2000 MG IV ×3 (00:27→23:42)
[2024-10-06] MEDS: SOLU-MEDROL PF 40 MG IV ×3 (06:04→23:42)
[2024-10-06] MEDS: NSS 1000 IV (06:04)
[2024-10-06 07:10] LABS: Hematocrit 37.7 % (37.0-47.0); Hemoglobin 12.9 g/dL (12.0-16.0); Mean Corp Hgb Conc. 34.2 g/dL (33.0-37.0); Mean Corpuscular Hgb 31.2 pg (27.0-31.0); Mean Corpuscular Volume 91.1 fL (81.0-99.0); Mean Platelet Volume 10.8 fL (7.4-10.4); Platelet Count 333 10^3/uL (130-400); Red Blood Cell Count 4.14 10^6/uL (4.20-5.40); Red Cell Dist. Width 12.8 % (11.5-14.5); White Blood Cell Count 12.4 10^3/uL (4.8-10.8)
[2024-10-06] MEDS: DUONEB 3 ML INH ×3 (07:20→15:55)
[2024-10-06 07:31] LABS: Blood Urea Nitrogen 45 mg/dl (7-17); Calcium 8.1 mg/dl (8.4-10.2); Carbon Dioxide 25 mmol/L (22-30); Chloride 106 mmol/L (98-107); Estimated Creatinine Clearance 40 ml/min; Glucose 203 mg/dl (70-99); Potassium 3.7 mmol/L (3.5-5.1); Sodium 140 mmol/L (135-145); eGFR 35.57
[2024-10-06 07:52] LABS: Vancomycin Random 18.5 ug/ml
[2024-10-06 08:16] LABS: Glucose - Point of Care 268 mg/dl (70-99)
[2024-10-06] MEDS: ADDERALL 20 MG PO ×3 (08:32→18:02)
[2024-10-06] MEDS: PAXIL 60 MG PO (08:32)
[2024-10-06] MEDS: MUCINEX 600 MG PO ×2 (08:34→20:31)
[2024-10-06] MEDS: LOW STRENGTH ASPIRIN 81 MG PO (08:34)
[2024-10-06] MEDS: TAMIFLU 30 MG PO ×2 (08:34→20:31)
[2024-10-06] MEDS: NOVOLOG FLEXPEN-LOW RESISTANCE 3 UNITS SC ×3 (08:36→18:04)
--- NOTE | 2024-10-06 09:46 | W.PN.PUL3 ---
Today's Communication / Plan
-
Antibiotics with cefepime + Zithromax; IV vancomycin DC'd given MRSA swab is negative
Solu-Medrol, currently 40 mg IV every 8 hours --> q12hr today
Titrate down O2 flow rate while keeping SpO2 88-95%
Mucolytics
Trend procal --> check tomorrow
Follow-up cultures and sputum culture (shows Adeline albicans � contaminant with no need to treat
Tamiflu for 5 days
Recommend to start nocturnal BiPAP and trend blood gas to assure hypercapnia remained stable --> she is refusing
Nicotine patch given she vapes nicotine --> refusing nicotine patch
Pulmonary service will continue to briefly follow along and outpatient follow-up will be arranged
Assessment
-
Assessment: 63-year-old female with a past medical history of COPD, depression, proteinuria, CKD, chronic lower back pain, multiple sclerosis, hypertension, hypercholesterolemia, vitamin D deficiency, ADHD, history of meningioma s/p resection
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 Patient lives with her sister who was admitted last night for the flu. She been
feeling sick for about 1-1/2 weeks. Been having aches and pains, shortness of breath and coughing. Her cough is been productive of mucus (does not know the color). She says that her cough is more dry currently. Her shortness of breath progressed
on the morning prior to arrival. Regarding her history of COPD she does not follow with a endoscopy support specialist. In the ER she was afebrile to 90 �F, pulse rate 78, breathing at 18 breaths/min, BP 143/79 saturating 88% on room air, and sats improved to
95% with 4 L/min. Unfortunately she continued to have shortness of breath and ended up being transition to high flow nasal cannula. Initial labs showed mild leukocytosis to 13, Hb 15.4, creatinine 1.3, glucose 182, troponin negative at <0.012,
COVID-19 antigen negative and flu swab showed she was positive for influenza A. CXR showed prominent interstitial markings with peribronchial thickening within both lungs. This is suspicious for bilateral interstitial pneumonia. In the ER she was
given ceftriaxone, Tamiflu, doxycycline, Decadron 10 mg, DuoNebs and IVF with NS 0.9% x1L. FiO2 requirements unfortunately gi to 100% and pulmonary service consulted for additional management. Patient being admitted to the IMU.
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
meningioma, atrophic right kidney, CAD s/p stenting x 2, GERD, DM type II, right foot drop, history of tobacco use
Impression:
#Acute respiratory failure with hypoxia + hypercapnia requiring high flow nasal cannula --> now off midflow nasal cannula and onto regular nasal cannula
#Acute viral pneumonia due to influenza A with bacterial superinfection
#COPD exacerbation due to above
#Leukocytosis likely due to above
#DM type II c/b hyperglycemia (last HbA1c: 12.1 on 10/08/2022)
#DUTCH on CKD (baseline creatinine 1.3�1.5)
#Former tobacco use disorder with COPD
#Continued nicotine vape use
#Multiple sclerosis
#Hypertension
#CAD s/p stenting x 2
#GERD
#Depression
Plan:
- Patient is doing much better both subjectively and objectively, now off of high flow nasal cannula FiO2 100% and down to 2L/min from mid flow nasal cannula
- Continue supplemental O2 and titrate O2 flow rate to keep SpO2 at 88-95%
- Aspiration precautions with keeping HOB >30-45�
- Change xopenex + Atrovent q4hr to DuoNebs QID with prn doses in between for breakthrough symptoms
- Continue systemic steroids with Solu-Medrol 40 mg IV q8hr v--> wean today to 40mg IV q12hr
- Maintain euglycemia while on high-dose steroids with goal BG >100 and <180; A1C: 7.7 (10/05/2024)
- Initial blood gas showed she was acutely hypercapnic with pH 7.22, pCO2 52. She was lethargic and nauseous initially in the ER so BiPAP was not an option given it was contraindicated. Repeat repeat blood gas 1.5 hours later showed improvement
with pH 7.36, pCO2 37. This has remained stable with blood gas on morning of 10/05/2024, with pH 7.37 and pCO2 41. Continue to trend to assure her hypercapnia remained stable
- Recommend to start nocturnal BiPAP - she was initially agreeable to this but has refused; she understands the risks of noncompliance including CO2 narcosis due to rising CO2 levels, hypoxia due to altered mental status with aspiration and .
I will DC the order now.
- Tamiflu X 5 days
- Broad-spectrum antibiotics, currently on cefepime + azithromycin; IV vanco DC'd due to negative MRSA swab
- Trend QTc while on Zithromax (417ms on 10/05/2024)
- Check urine antigens for Legionella + strep pneumonia
- Follow up blood cultures (drawn 10/05/2024); sputum culture from 10/05/2024 is growing Adeline albicans (likely contaminant � no need to treat)
- MRSA swab is negative --> recommend to DC IV vanco
- Procal elevated at 1.83 � continue to monitor for trending power
- Antitussants prn
- Mucolytics
- Given that she vapes nicotine, start nicotine patch 7mg --> she is refusing; I will DC this order
- Antiemetics prn; monitor QTc
- Incentive spirometer once she improves
- Replete electrolytes with K>4, Mg>2
- DVT ppx: HSQ
- Full Code
- She was admitted to the IMU on admission due to her severe hypoxia. Now that her hypoxia has improved and she is doing better, can downgrade to telemetry.
Pulmonary service will continue to briefly follow along. Outpatient pulmonary office follow-up will also be arranged.
Data:
CXR 10/04/2024: Subtle increased interstitial markings with peribronchial thickening within both lungs, which likely represents bilateral interstitial pneumonia. Patient has positive influenza test.
Total time spent today was 39 minutes for this encounter. Time includes reviewing laboratory test/imaging results, reviewing pertinent medical records, obtaining and reviewing medical history, performing an appropriate exam, ordering medications,
tests and procedures. Time also includes documentation of this encounter, coordinating patient care and communicating with other healthcare professionals. Total time does not include separately billed tests performed on this date of service.
Subjective Data
-
Date of Service:
Date of Service: October 06, 2024
Chief Complaint: Pulmonary Follow Up
Subjective:
Patient seen earlier today � late note entry. Patient seen this morning and she says she got poor sleep overnight as she was restless. Currently on 2 L/min and says her breathing is better today. Still has a mild dry cough. Denies abdominal
pain, nausea, vomiting, fevers or chills.
Review of Systems
General: Other (Negative unless mentioned above)
Objective Data
Data Reviewed
Vital Signs / I&O / Oxygen:
Vital Signs
Temp Pulse Resp BP Pulse Ox
98.7 F 72 20 164/81 98
10/06/24 08:18 10/06/24 08:18 10/06/24 08:18 10/06/24 08:18 10/06/24 08:18
Intake and Output
10/05/24 10/06/24 10/07/24
06:59 06:59 06:59
Intake Total 1155 / 1155 1160 / 1160
Balance 1155 / 1155 1160 / 1160
SaO2 98
Nasal Cannula flow liters per 2
minute
Physical Exam
General: Respiratory Distress (negative), Comfortable, Chills (negative) and Sweats (negative)
HEENT: Normocephalic and Anicteric
Cardiovascular: S1-S2 and Peripheral Edema (Trace lower extremity edema bilaterally)
Respiratory: Wheeze (Bilaterally), Crackles (negative), Rhonchi (negative), Non-Labored Respirations and Stridor (Bilaterally)
GI: Soft, Non Distended, Non Tender and Normal Bowel Sounds
Neurology: AO x 3 and Tremors (Bilaterally)
Skin: Warm, Dry, Cyanosis (Bilaterally) and Jaundice (Bilaterally)
Labs/Micro/Reports
Lab Data
10/06/24 06:55
10/06/24 06:55
Microbiology
10/05/24 05:10 Blood/Venous Blood Culture - Preliminary
No Growth in 24 hours- Final report to follow
10/05/24 16:07 Sputum Gram Stain - Preliminary
10/05/24 11:34 Feces/Stool C. difficile GDH Antigen & Toxins - Final
Negative for toxigenic C.difficile
10/05/24 11:34 Feces/Stool - Final
Negative for Norovirus GI and GII.
10/05/24 05:09 Nose Nasal Screen MRSA (PCR) - Final
MRSA not detected - performed by PCR methodology.
10/04/24 13:10 Nasal Swab Influenza Types A & B ([facility]) - Final
Influenza A Positive, NAAT
--- NOTE | 2024-10-06 11:43 | W.PN.HOSP.TC ---
Today's Communication/Plan
-
Continue Tamiflu
Continue with antibiotics
Decrease steroids
Wean oxygen as able
Assessment / Plan
Assessment / Plan
Ms. Shelia Hernandes is a 63 yo woman with hx CAD, PAD, COPD, HTN, HLD, NIDDM, CKD III, GERD presents to the ER with generalized weakness, fevers; found to be positive for Influenza A with hypoxic resp failure and increased work of breathing.
CXR
IMPRESSION:
Subtle increased interstitial markings with peribronchial thickening within both lungs, which likely represents bilateral interstitial pneumonia. Patient has positive influenza test.
COVID negative
Influenza A positive
Acute Hypoxic hypercapnic respiratory Failure
Influenza A positive
Interstitial pneumonia
COPD, acute exacerbation
Smoking Hx
-Patient with improved clinical picture and as well as oxygenation
-Continue with oxygen via nasal cannula and wean as able.
-s/p Tamiflu 75mg in ER; continue 30mg PO BID for CKD dosing
-continue antibiotics pending culture data. Interstitial pneumonia suspect is probably viral. With no consolidation or lobar pneumonia doubt bacterial. Elevated procalcitonin may be function of renal failure. MRSA swab negative-DC vancomycin
-Decrease methylprednisone dose
-Advised to quit smoking
DUTCH on chronic kidney disease stage III
Elevated creatinine since admission noted. Patient is also having loose stool since admission. Stools negative for C. difficile. Denies any further diarrhea. Improving creatinine. Follow BMP
NIDDM
-hold DROP FORGE OPERATOR Jardiance and Metformin for now
-ISS low
-Hemoglobin A1c 7.7
CAD - DROP FORGE OPERATOR aspirin/statin
Chronic Pain, Opiate Dependence
-lower dose DROP FORGE OPERATOR oxycodone - 5mg PRN
Depression - DROP FORGE OPERATOR Paxil
ADD - DROP FORGE OPERATOR Adderall
Patient is feeling anxious and she has used lorazepam in the past at home as needed for anxiety and request the same here.
DVT PPx hep subQ
FULL CODE
Anticipated Discharge: > 48 hours
Subjective/Interval History
-
Date of Service: October 06, 2024
Feeling improved. Oxygen down to 2 L.
Tells me that she is going to kick the habit of tobacco for good. She does not want to feel this way.
Objective Data
-
Labs:
Laboratory Results
10/06/24
06:55
WBC 12.4 H
Hgb 12.9
Hct 37.7
Plt Count 333
Sodium 140
Potassium 3.7
Chloride 106
Carbon Dioxide 25
BUN 45 H
Creatinine 1.6 H
Glucose 203 H
Calcium 8.1 L
Vital Signs:
Vital Signs
Temp Pulse Resp BP Pulse Ox
98.7 F 72 16 164/81 96
10/06/24 08:18 10/06/24 08:18 10/06/24 11:26 10/06/24 08:18 10/06/24 11:26
I&O
10/05/24 10/06/24 10/07/24
06:59 06:59 06:59
Intake Total 1155 / 1155 1160 / 1160
Balance 1155 / 1155 1160 / 1160
Review of Systems
-
Constitutional: Denies Fever or Chills
Respiratory: Reports Trouble Breathing (Improved)
Cardiac: Denies Chest Pain
Abdomen/GI: Denies Abdominal Pain, Nausea or Vomiting
Neuro: Denies Dizzy
Physical Exam
-
General: No Apparent Distress
HEENT: Moist Mucous Membranes
Respiratory: Wheezes and Non Labored Respirations; Negative Accessory Resp Muscle Use
Cardiac: Regular Rhythm and S1/S2
Neuro: AO x 3
Data Reviewed
-
Labs: Labs Reviewed by me
--- NOTE | 2024-10-06 11:45 | RESPNOTE ---
patient states she does not have a nebulizer unit for home treatments, requests assist in obtaining through insurance.
[2024-10-06] MEDS: ATIVAN 0.5 MG PO ×2 (12:09→20:31)
[2024-10-06 13:00] LABS: Glucose - Point of Care 259 mg/dl (70-99)
[2024-10-06 17:21] LABS: Glucose - Point of Care 288 mg/dl (70-99)
[2024-10-06] MEDS: ZITHROMAX INFUSION 250 IV (17:55)
--- NOTE | 2024-10-06 18:29 | PTCARENOTE ---
Chemotherapy completed. Pt tolerated well. No s/s of distress. IV site without any distress during infusing and post infusion. VSS
[2024-10-06] MEDS: DUONEB INH (20:03)
[2024-10-06] MEDS: LIPITOR 80 MG PO (20:31)
[2024-10-06 21:09] LABS: Glucose - Point of Care 293 mg/dl (70-99)
[2024-10-07 03:47] VITALS: BMI 29.4
[2024-10-07 03:50] VITALS: BP 178/85
[2024-10-07 06:52] LABS: Hematocrit 38.1 % (37.0-47.0); Hemoglobin 13.1 g/dL (12.0-16.0); Mean Corp Hgb Conc. 34.4 g/dL (33.0-37.0); Mean Corpuscular Volume 90.3 fL (81.0-99.0); Platelet Count 355 10^3/uL (130-400); Red Blood Cell Count 4.22 10^6/uL (4.20-5.40); Red Cell Dist. Width 12.5 % (11.5-14.5); White Blood Cell Count 9.9 10^3/uL (4.8-10.8)
[2024-10-07 07:20] LABS: Blood Urea Nitrogen 40 mg/dl (7-17); Calcium 8.5 mg/dl (8.4-10.2); Carbon Dioxide 28 mmol/L (22-30); Chloride 101 mmol/L (98-107); Estimated Creatinine Clearance 42 ml/min; Glucose 237 mg/dl (70-99); Sodium 139 mmol/L (135-145); eGFR 38.43
[2024-10-07 07:25] LABS: Procalcitonin 0.58 ng/ml (0.0-0.25)
[2024-10-07 07:25] LABS: Glucose - Point of Care 238 mg/dl (70-99)
[2024-10-07 07:59] VITALS: BP 169/76
[2024-10-07] MEDS: HEPARIN 5000 UNITS SC ×2 (08:11→16:18)
[2024-10-07] MEDS: PAXIL 60 MG PO (08:12)
[2024-10-07] MEDS: ADDERALL 20 MG PO ×3 (08:12→18:01)
[2024-10-07] MEDS: TAMIFLU 30 MG PO ×2 (08:12→20:32)
[2024-10-07] MEDS: MUCINEX 600 MG PO ×2 (08:13→20:32)
[2024-10-07] MEDS: LOW STRENGTH ASPIRIN 81 MG PO (08:13)
[2024-10-07] MEDS: NOVOLOG FLEXPEN-LOW RESISTANCE 2 UNITS SC (08:17)
[2024-10-07] MEDS: DUONEB 3 ML INH ×2 (08:48→11:38)
--- NOTE | 2024-10-07 09:12 | W.PN.HOSP.TC ---
Today's Communication/Plan
-
Check oxygen on room air and if okay will check for home O2 eval
PT eval
DC planning
Assessment / Plan
Assessment / Plan
Ms. Shelia Hernandes is a 63 yo woman with hx CAD, PAD, COPD, HTN, HLD, NIDDM, CKD III, GERD presents to the ER with generalized weakness, fevers; found to be positive for Influenza A with hypoxic resp failure and increased work of breathing.
CXR
IMPRESSION:
Subtle increased interstitial markings with peribronchial thickening within both lungs, which likely represents bilateral interstitial pneumonia. Patient has positive influenza test.
COVID negative
Influenza A positive
Acute Hypoxic hypercapnic respiratory Failure
Influenza A positive
Interstitial pneumonia
COPD, acute exacerbation
Smoking Hx
-Patient with improved clinical picture and as well as oxygenation. Check oxygen on room air.
-Continue with oxygen via nasal cannula and wean as able.
-s/p Tamiflu 75mg in ER; continue 30mg PO BID for CKD dosing
-continue antibiotics pending culture data. Interstitial pneumonia suspect is probably viral. With no consolidation or lobar pneumonia doubt bacterial. Elevated procalcitonin may be function of renal failure. MRSA swab negative-DCed vancomycin.
Repeat procalcitonin pending.
-Decrease methylprednisone dose-taper per pulmonary.
-Advised to quit smoking and patient seriously considering stopping tobacco use.
DUTCH on chronic kidney disease stage III
Elevated creatinine since admission noted. Patient is also having loose stool since admission. Stools negative for C. difficile. Denies any further diarrhea. Improving creatinine. Follow BMP
NIDDM
-hold BEDSPREAD INSPECTOR Jardiance and Metformin for now
-ISS low
-Hemoglobin A1c 7.7
CAD - BEDSPREAD INSPECTOR aspirin/statin
Chronic Pain, Opiate Dependence
-lower dose BEDSPREAD INSPECTOR oxycodone - 5mg PRN
Depression - BEDSPREAD INSPECTOR Paxil
ADD - BEDSPREAD INSPECTOR Adderall
Patient is feeling anxious and she has used lorazepam in the past at home as needed for anxiety and request the same here.
DVT PPx hep subQ
FULL CODE
Check oxygen on room air
PT eval
DC planning
Anticipated Discharge: Today
Subjective/Interval History
-
Date of Service: October 07, 2024
Patient is feeling improved. Less fatigued. Able to get out of the bed and use bathroom. Improved sore throat. Cough is also improving. Denies shortness of breath at rest. On lower FiO2 at 2 L of oxygen via nasal cannula currently
Objective Data
-
Labs:
Laboratory Results
10/07/24
06:07
WBC 9.9
Hgb 13.1
Hct 38.1
Plt Count 355
Sodium 139
Potassium 4.0
Chloride 101
Carbon Dioxide 28
BUN 40 H
Creatinine 1.5 H
Glucose 237 H
Calcium 8.5
Vital Signs:
Vital Signs
Temp Pulse Resp BP Pulse Ox
98.1 F 73 16 169/76 91
10/07/24 07:59 10/07/24 07:59 10/07/24 08:50 10/07/24 07:59 10/07/24 08:50
I&O
10/06/24 10/07/24 10/08/24
06:59 06:59 06:59
Intake Total 1160 / 1160 2690 / 2690
Balance 1160 / 1160 2690 / 2690
Review of Systems
-
Constitutional: Denies Fever or Chills
Cardiac: Denies Chest Pain
Abdomen/GI: Denies Abdominal Pain, Nausea or Vomiting
Neuro: Denies Dizzy or Headache
Physical Exam
-
General: Comfortable
Respiratory: Wheezes (Occasional wheeze) and Non Labored Respirations; Negative Accessory Resp Muscle Use
Cardiac: Regular Rhythm and S1/S2
Neuro: AO x 3
Data Reviewed
-
Labs: Labs Reviewed by me
--- NOTE | 2024-10-07 09:16 | W.PN.PUL3 ---
Today's Communication / Plan
-
Antibiotics with cefepime + Zithromax; IV vancomycin DC'd given MRSA swab is negative - rec'd to give 7 days total
Solu-Medrol, currently 40 mg IV every 8 hours --> q12hr yesterday --> wean tomorrow to prednisone taper starting at 40mg and reduce by 10mg every 5th day until off
Titrate down O2 flow rate while keeping SpO2 88-95%
Mucolytics
Procalcitonin is downtrending indicating we have source control
Follow-up cultures and sputum culture (shows Adeline albicans � contaminant with no need to treat)
Tamiflu for 5 days
Recommend to start nocturnal BiPAP and trend blood gas to assure hypercapnia remained stable --> she is refusing
Nicotine patch given she vapes nicotine --> refusing nicotine patch
Patient has markedly improved, now on room air breathing comfortably. No additional recommendations at this time. Pulmonary service will now sign off. Please reconsult if there are any additional questions/concerns, or if patient's respiratory
status deteriorates. Outpatient pulmonary office follow-up will also be arranged.
Assessment
-
Assessment: 63-year-old female with a past medical history of COPD, depression, proteinuria, CKD, chronic lower back pain, multiple sclerosis, hypertension, hypercholesterolemia, vitamin D deficiency, ADHD, history of meningioma s/p resection
(2014), DM type II, right foot drop, PAD s/p right�[employer]INE[employer], and history of tobacco use who presents with low energy, cough, shortness of breath and generalized weakness. Patient lives with her sister who was admitted last night for the flu. She been
feeling sick for about 1-1/2 weeks. Been having aches and pains, shortness of breath and coughing. Her cough is been productive of mucus (does not know the color). She says that her cough is more dry currently. Her shortness of breath progressed
on the morning prior to arrival. Regarding her history of COPD she does not follow with a investigator cash shortage. In the ER she was afebrile to 90 �F, pulse rate 78, breathing at 18 breaths/min, BP 143/79 saturating 88% on room air, and sats improved to
95% with 4 L/min. Unfortunately she continued to have shortness of breath and ended up being transition to high flow nasal cannula. Initial labs showed mild leukocytosis to 13, Hb 15.4, creatinine 1.3, glucose 182, troponin negative at <0.012,
COVID-19 antigen negative and flu swab showed she was positive for influenza A. CXR showed prominent interstitial markings with peribronchial thickening within both lungs. This is suspicious for bilateral interstitial pneumonia. In the ER she was
given ceftriaxone, Tamiflu, doxycycline, Decadron 10 mg, DuoNebs and IVF with NS 0.9% x1L. FiO2 requirements unfortunately gi to 100% and pulmonary service consulted for additional management. Patient being admitted to the IMU.
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
meningioma, atrophic right kidney, CAD s/p stenting x 2, GERD, DM type II, right foot drop, history of tobacco use
Impression:
#Acute respiratory failure with hypoxia + hypercapnia requiring high flow nasal cannula --> now on room air as of 10/07/2024
#Acute viral pneumonia due to influenza A with bacterial superinfection
#COPD exacerbation due to above
#Leukocytosis likely due to above - resolved
#DM type II c/b hyperglycemia (last HbA1c: 12.1 on 10/08/2022)
#DUTCH on CKD (baseline creatinine 1.3�1.5)
#Former tobacco use disorder with COPD
#Continued nicotine vape use
#Multiple sclerosis
#Hypertension
#CAD s/p stenting x 2
#GERD
#Depression
Plan:
- Patient is doing much better both subjectively and objectively, now off of high flow nasal cannula FiO2 100% and on room air as of 10/07/2024 down from midflow nasal cannula
- Keep SpO2 at 88-95%
- Aspiration precautions with keeping HOB >30-45�
- Changed xopenex + Atrovent q4hr to DuoNebs QID with prn doses in between for breakthrough symptoms
- Continue systemic steroids with Solu-Medrol 40 mg IV q8hr v--> weaned on 10/06 to 40mg IV q12hr --> wean tomorrow to prednisone taper starting at 40mg and reduce by 10mg every 5th day until off
- Maintain euglycemia while on high-dose steroids with goal BG >100 and <180; A1C: 7.7 (10/05/2024)
- Initial blood gas showed she was acutely hypercapnic with pH 7.22, pCO2 52. She was lethargic and nauseous initially in the ER so BiPAP was not an option given it was contraindicated. Repeat repeat blood gas 1.5 hours later showed improvement
with pH 7.36, pCO2 37. This has remained stable with blood gas on morning of 10/05/2024, with pH 7.37 and pCO2 41. Continue to trend to assure her hypercapnia remained stable
- Recommend to start nocturnal BiPAP - she was initially agreeable to this but has refused; she understands the risks of noncompliance including CO2 narcosis due to rising CO2 levels, hypoxia due to altered mental status with aspiration and .
I DC'd the order now.
- Tamiflu X 5 days
- Broad-spectrum antibiotics, currently on cefepime + azithromycin; IV vanco DC'd due to negative MRSA swab
- Trend QTc while on Zithromax (417ms on 10/05/2024)
- Check urine antigens for Legionella + strep pneumonia
- Follow up blood cultures (drawn 10/05/2024); sputum culture from 10/05/2024 is growing Adeline albicans (likely contaminant � no need to treat)
- MRSA swab is negative --> recommend to DC IV vanco
- Procal elevated at 1.83 ; 0.58 today indicating we have source control
- Antitussants prn
- Mucolytics
- Given that she vapes nicotine, start nicotine patch 7mg --> she is refusing; I DC'd this order
- Antiemetics prn; monitor QTc
- Incentive spirometer once she improves
- Replete electrolytes with K>4, Mg>2
- DVT ppx: HSQ
- Full Code
Patient has markedly improved, now on room air breathing comfortably. No additional recommendations at this time. Pulmonary service will now sign off. Thank you for allowing us to be involved in the care of this patient. Please reconsult if
there are any additional questions/concerns, or if patient's respiratory status deteriorates. Outpatient pulmonary office follow-up will also be arranged.
Data:
CXR 10/04/2024: Subtle increased interstitial markings with peribronchial thickening within both lungs, which likely represents bilateral interstitial pneumonia. Patient has positive influenza test.
Total time spent today was 26 minutes for this encounter. Time includes reviewing laboratory test/imaging results, reviewing pertinent medical records, obtaining and reviewing medical history, performing an appropriate exam, ordering medications,
tests and procedures. Time also includes documentation of this encounter, coordinating patient care and communicating with other healthcare professionals. Total time does not include separately billed tests performed on this date of service.
Subjective Data
-
Date of Service:
Date of Service: October 07, 2024
Chief Complaint: Pulmonary Follow Up
Subjective:
Patient seen earlier today (late note entry). Patient resting in bed in no acute distress on room air, saturating 96%. Afebrile overnight. Denies shortness of breath and has a improving cough. Denies abdominal pain, nausea, GÓMEZ, fevers or chills.
Review of Systems
General: Other (Negative unless mentioned above)
Objective Data
Data Reviewed
Vital Signs / I&O / Oxygen:
Vital Signs
Temp Pulse Resp BP Pulse Ox
98.1 F 73 16 169/76 91
10/07/24 07:59 10/07/24 07:59 10/07/24 08:50 10/07/24 07:59 10/07/24 08:50
Intake and Output
10/06/24 10/07/24 10/08/24
06:59 06:59 06:59
Intake Total 1160 / 1160 2690 / 2690
Balance 1160 / 1160 2690 / 2690
SaO2 91
Nasal Cannula flow liters per 2
minute
Physical Exam
General: Respiratory Distress (negative), Comfortable, Chills (negative) and Sweats (negative)
HEENT: Normocephalic and Anicteric
Cardiovascular: S1-S2 and Peripheral Edema (Trace lower extremity edema bilaterally)
Respiratory: Wheeze (Bilaterally), Crackles (negative), Rhonchi (negative), Non-Labored Respirations and Stridor (Bilaterally)
GI: Soft, Non Distended, Non Tender and Normal Bowel Sounds
Neurology: AO x 3 and Tremors (Bilaterally)
Skin: Warm, Dry, Cyanosis (Bilaterally) and Jaundice (Bilaterally)
Labs/Micro/Reports
Lab Data
10/07/24 06:07
10/07/24 06:07
Microbiology
10/05/24 05:10 Blood/Venous Blood Culture - Preliminary
No Growth in 48 hours- Final report to follow
10/05/24 16:07 Sputum Respiratory Culture - Preliminary
Adeline albicans
10/05/24 16:07 Sputum Gram Stain - Preliminary
10/05/24 11:34 Feces/Stool C. difficile GDH Antigen & Toxins - Final
Negative for toxigenic C.difficile
10/05/24 11:34 Feces/Stool - Final
Negative for Norovirus GI and GII.
10/05/24 05:09 Nose Nasal Screen MRSA (PCR) - Final
MRSA not detected - performed by PCR methodology.
10/04/24 13:10 Nasal Swab Influenza Types A & B ([facility]) - Final
Influenza A Positive, NAAT
[2024-10-07 11:44] VITALS: BP 170/77
[2024-10-07 12:27] LABS: Glucose - Point of Care 252 mg/dl (70-99)
[2024-10-07] MEDS: ATIVAN 0.5 MG PO ×2 (12:28→20:36)
[2024-10-07] MEDS: NOVOLOG FLEXPEN-LOW RESISTANCE 3 UNITS SC (12:28)
[2024-10-07] MEDS: MAXIPIME 2000 MG IV (12:28)
[2024-10-07] MEDS: STERILE WATER FOR INJECTION 10 ML IV (12:28)
[2024-10-07] MEDS: SOLU-MEDROL PF 40 MG IV (12:28)
[2024-10-07] MEDS: DUONEB INH ×2 (15:35→20:23)
[2024-10-07 15:37] VITALS: BP 156/90
[2024-10-07 16:38] LABS: Glucose - Point of Care 322 mg/dl (70-99)
[2024-10-07] MEDS: ZITHROMAX 500 MG PO (17:18)
[2024-10-07] MEDS: NOVOLOG FLEXPEN-LOW RESISTANCE 4 UNITS SC (17:19)
[2024-10-07 19:05] VITALS: BP 181/93
[2024-10-07] MEDS: LIPITOR 80 MG PO (20:32)
[2024-10-07 21:15] LABS: Glucose - Point of Care 308 mg/dl (70-99)
[2024-10-07] MEDS: NOVOLOG FLEXPEN 5 UNITS SC (22:27)
[2024-10-07 23:10] VITALS: BP 172/88
[2024-10-08 00:22] LABS: Glucose - Point of Care 212 mg/dl (70-99)
[2024-10-08] MEDS: HEPARIN 5000 UNITS SC ×2 (00:30→07:56)
[2024-10-08] MEDS: STERILE WATER FOR INJECTION 10 ML IV ×2 (00:30→12:44)
[2024-10-08] MEDS: MAXIPIME 2000 MG IV ×2 (00:30→12:44)
[2024-10-08] MEDS: SOLU-MEDROL PF 40 MG IV ×2 (00:30→12:46)
[2024-10-08 07:35] LABS: Glucose - Point of Care 266 mg/dl (70-99)
[2024-10-08 07:50] VITALS: BP 162/101
[2024-10-08] MEDS: DUONEB INH ×3 (07:54→15:06)
[2024-10-08] MEDS: ADDERALL 20 MG PO ×2 (07:56→12:44)
[2024-10-08] MEDS: TAMIFLU 30 MG PO (07:56)
[2024-10-08] MEDS: LOW STRENGTH ASPIRIN 81 MG PO (07:56)
[2024-10-08] MEDS: MUCINEX 600 MG PO (07:56)
[2024-10-08] MEDS: PAXIL 60 MG PO (07:56)
[2024-10-08] MEDS: NOVOLOG FLEXPEN-LOW RESISTANCE 3 UNITS SC (07:58)
--- NOTE | 2024-10-08 09:52 | W.PN.HOSP.TC ---
Addendum entered and electronically signed by Stalin Hood MD 10/13/24 16:49:
Based on the criteria of sepsis was present on admission.
Addendum entered and electronically signed by Stalin Hood MD 10/08/24 10:02:
With a history of atrophic right kidney and chronic kidney disease I had a discussion with the patient trying avoid CARSON inhibitors. She does have a compelling indication of CARSON inhibitors with hypertension and diabetes but with single functioning
kidney would probably choose another agent. Started on amlodipine and patient was agreeable
Original Note:
Today's Communication/Plan
-
DC
Assessment / Plan
Assessment / Plan
Ms. Shelia Hernandes is a 63 yo woman with hx CAD, PAD, COPD, HTN, HLD, NIDDM, CKD III, GERD presents to the ER with generalized weakness, fevers; found to be positive for Influenza A with hypoxic resp failure and increased work of breathing.
CXR
IMPRESSION:
Subtle increased interstitial markings with peribronchial thickening within both lungs, which likely represents bilateral interstitial pneumonia. Patient has positive influenza test.
COVID negative
Influenza A positive
Acute Hypoxic hypercapnic respiratory Failure
Influenza A positive
Interstitial pneumonia
COPD, acute exacerbation
Smoking Hx
-Patient with improved clinical picture and as well as oxygenation. Currently on room air
-s/p Tamiflu 75mg in ER; continue 30mg PO BID for CKD dosing-finish 5-day course
-Interstitial pneumonia suspect is probably viral. With no consolidation or lobar pneumonia doubt bacterial. Elevated procalcitonin may be function of renal failure but with improved level on antibiotics and same renal function concerned that
there may be bacterial competent or pneumonia, will finish 7-day course of antibiotics with cephalosporins-switch to cefdinir. MRSA swab negative-DCed vancomycin.
-Decrease methylprednisone dose-taper per pulmonary. Switch to oral prednisone and taper per pulmonary
-Advised to quit smoking and patient seriously considering stopping tobacco use.
DUTCH on chronic kidney disease stage III
Elevated creatinine since admission noted. Patient is also having loose stool since admission. Stools negative for C. difficile. Denies any further diarrhea. Improving creatinine. Follow BMP
NIDDM
-Resume Jardiance and Metformin for now on discharge
-Hemoglobin A1c 7.7
Elevated blood pressure-multiple reading shows blood pressure above the goal. Patient says she had a prior history of hypertension and was using lisinopril and that was stopped once her blood pressure was under goal without it. Advised tp reassume
lisinopril at 5 mg with a current blood pressure readings and follow-up with PCP. She is in agreement with the plan.
CAD - DENSITY CONTROL PUNCHER aspirin/statin
Chronic Pain, Opiate Dependence
-lower dose DENSITY CONTROL PUNCHER oxycodone - 5mg PRN
Depression - DENSITY CONTROL PUNCHER Paxil
ADD - DENSITY CONTROL PUNCHER Adderall
DVT PPx hep subQ
FULL CODE
PT eval noted
Medically stable for discharge home today.
More than 30 minutes spent in discharge including
Final examination of the patient
Summarizing hospital stay
Instructions for continuing care to all relevant caregivers
Preparation of discharge records, prescriptions, and referral forms
Total time spent (in minutes): 32 minutes
Anticipated Discharge: Today
Subjective/Interval History
-
Date of Service: October 08, 2024
Patient is feeling improved from breathing. She is off of oxygen now.
Objective Data
-
Vital Signs:
Vital Signs
Temp Pulse Resp BP Pulse Ox
98.1 F 80 18 162/101 95
10/08/24 07:50 10/08/24 07:50 10/08/24 07:50 10/08/24 07:50 10/08/24 07:50
I&O
10/07/24 10/08/24 10/09/24
06:59 06:59 06:59
Intake Total 2690 / 2690 240 / 240
Balance 2690 / 2690 240 / 240
Review of Systems
-
Constitutional: Denies Fever or Chills
Respiratory: Reports Cough (Improved); Denies Trouble Breathing
Cardiac: Denies Chest Pain
Abdomen/GI: Denies Abdominal Pain, Nausea or Vomiting
Neuro: Denies Dizzy
Physical Exam
-
General: Comfortable
Respiratory: Non Labored Respirations; Negative Wheezes (Today) or Accessory Resp Muscle Use
Cardiac: Regular Rhythm and S1/S2; Negative Tachycardic
GI: Soft
Neuro: AO x 3
Psych: Calm; Negative Confused
[2024-10-08] MEDS: NORVASC 5 MG PO (10:18)
[2024-10-08 11:50] LABS: Glucose - Point of Care 224 mg/dl (70-99)
[2024-10-08 11:58] VITALS: BP 155/89
[2024-10-08] MEDS: NOVOLOG FLEXPEN-LOW RESISTANCE 2 UNITS SC (12:43)
[2024-10-08 14:36] VITALS: BP 164/88
--- NOTE | 2024-10-08 15:37 | CM ---
Met with patient to obtain information for assessment. Patient stated that she lives with her twin sister and nephew in a two story home with 3 steps to enter. She described herself as independent with her ADLs, personal care, dressing and bathing.
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 Her family drives and can transport her to her appointments and takes her shopping. She uses a walker to assist with her ambulation. She also has a w/c.
Patient has had [facility] in the past.
She has never been to a SNF.
She has a prescription plan and uses, [facility] in [place] for all of her medications.
Her PCP is Dr. Balwinder Luis.
Patient stated that she is agreeable to discharge. Family will transport. She signed IMM, now on chart.
Plan: Case management will continue to follow and assist with discharge planning. Home with family.
--- NOTE | 2024-10-09 18:18 | W.DCSUMMARY ---
Discharge Summary
Discharge Data
Date of Admission: 10/04/24
Date of Discharge: 10/08/24
-
Pending Results: No
Hospital Course
Primary diagnosis:
Acute hypoxic hypercapnic respiratory failure
Influenza A infection
Interstitial pneumonia
Chronic obstructive pulmonary disease with acute exacerbation
Active smoking
Acute kidney injury on chronic kidney disease stage III
Secondary diagnosis:
History of hypertension
Diabetes mellitus type 2
Coronary artery disease
Chronic pain, opiate dependence
Depression
Hospital course:
63 old lady presented with generalized weakness, fever, and short of breath and found to have acute hypoxic hypercapnic respiratory failure requiring high flow initially. She will was positive for influenza A. She is known to have COPD and
actively smoking. Chest x-ray showed interstitial pneumonia possibly viral but with elevated procalcitonin on admission she was treated with antibiotics as well as Tamiflu. With treatment of her infection she did improve significantly and she was
able to come off of oxygen completely and the fevers resolved and she clinically improved. Procalcitonin improved with antibiotic regimen. That raises a concern if there is a bacterial component as well. She was switched to oral cefdinir on
discharge. She was also given rest of the remaining days of Tamiflu on discharge. Her MRSA swab was negative. She was not bacteremic. She was discharged home on taper of steroids
She had DUTCH with a creatinine elevation from 1.3-1.7 but that improved to baseline 1.5 the time of discharge. She is history of atrophic right kidney.
She told us on this admission that she was going to quit tobacco.
Hemoglobin A1c was 7.7 she was resumed on Jardiance and metformin and discharged.
She is known to have hypertension and she said that she was taking lisinopril in the past but discontinued as her blood pressure was mostly under goal. Her readings on multiple occasions were not on the goal so she was started back on
antihypertensives and choose amlodipine with atrophic right kidney.
Consultants on board:
Pulmonary Don Rush
Discharge Plan
-
Patient Disposition: Home (Routine Discharge)
Discharge Diagnosis/Procedures: Acute Hypoxic hypercapnic respiratory Failure
Influenza A positive
Interstitial pneumonia
COPD, acute exacerbation
Active tobacco Smoking
HTN
DM
CAD
Diet: Diabetic, Carb Controlled
Activity: As tolerated
Driving Restrictions: As prior to admission
Referrals:
Don Carlson MD [Active] - in two to four weeks (full PFTs on day of office visit)
Balwinder Luis DO [Family Provider] - in less than 1 week
Prescriptions:
New
cefdinir 300 mg capsule
300 mg PO BID Qty: 8 0RF
amlodipine 5 mg Tablet
5 mg PO DAILY Qty: 30 0RF
prednisone 10 mg tablet
10 mg PO DIRECTED Qty: 50 0RF
Rx Instructions:
40mg daily start today and cut it by 10mg every 5 days
oseltamivir 30 mg Capsule
30 mg PO BID Qty: 3 0RF
Rx Instructions:
take it for next 1 1/2 day
azithromycin 250 mg Tablet
500 mg PO DAILY Qty: 1 0RF
Rx Instructions:
for one day tomorrow
pantoprazole [Protonix] 40 mg tablet,delayed release (DR/EC)
40 mg PO DAILY Qty: 20 0RF
Rx Instructions:
take it while on prednisone
albuterol sulfate 90 mcg/actuation HFA aerosol inhaler
2 puff inhalation Q6H PRN (Reason: shortness of breath or wheezing) Qty: 6.7 0RF
Continued
atorvastatin 80 MG tablet
80 mg PO HS
aspirin 81 MG tablet,chewable
81 mg PO DAILY
albuterol sulfate 90 mcg/actuation Hfa Aerosol Inhaler
2 puff inhalation R Q4HPRN PRN (Reason: SOB/wheezing) Qty: 1 0RF
oxycodone 15 mg Tablet
15 mg PO Q6HPRN PRN (Reason: severe pain)
metformin 500 mg Tablet Extended Release 24 Hr
1,000 mg PO BID
Jardiance 25 mg Tablet
25 mg PO DAILY
dextroamphetamine-amphetamine [Adderall] 20 mg Tablet
20 mg PO TID
gabapentin 300 mg Capsule
300 mg PO TID
paroxetine HCl [Paxil] 40 mg Tablet
60 mg PO DAILY
Discharge Orders:
Discharge Patient (As Directed); Ordered 10/08/24
Ordered By: Stalin Hood
Discharge Date and Time
Discharge Date/Time: 10/08/24 15:46
Print Language: THAI
== END 2024-10-08 15:46 | disposition home or self-care (01) | DRG 871 ==
LOC: 3 WEST ACU 16:48
PROVIDERS: Emergency Medicine; Physician Assistant; ADMITTING PHYSICIAN Student in an Organized Health Care Education/Training Program; ATTENDING PHYSICIAN Internal Medicine; CONSULT PHYSICIAN Internal Medicine Critical Care Medicine; EMERGENCY PHYSICIAN Student in an Organized Health Care Education/Training Program; FAMILY PHYSICIAN Family Medicine
PROC: 5A0935A Assistance with Respiratory Ventilation, Less than 24 Consecutive Hours, High Flow/Velocity Cannula (ICD-10-PCS; 2024-10-04)
DX: A41.9 Sepsis, unspecified organism (principal); J10.08 Influenza due to other identified influenza virus with other specified pneumonia; J96.01 Acute respiratory failure with hypoxia; J12.9 Viral pneumonia, unspecified; F11.20 Opioid dependence, uncomplicated; N17.9 Acute kidney failure, unspecified; J84.9 Interstitial pulmonary disease, unspecified; J44.1 Chronic obstructive pulmonary disease with (acute) exacerbation; J44.0 Chronic obstructive pulmonary disease with (acute) lower respiratory infection; I12.9 Hypertensive chronic kidney disease with stage 1 through stage 4 chronic kidney disease, or unspecified chronic kidney disease; I25.10 Atherosclerotic heart disease of native coronary artery without angina pectoris; K21.9 Gastro-esophageal reflux disease without esophagitis; N18.30 Chronic kidney disease, stage 3 unspecified; E11.22 Type 2 diabetes mellitus with diabetic chronic kidney disease; E11.51 Type 2 diabetes mellitus with diabetic peripheral angiopathy without gangrene; E55.9 Vitamin D deficiency, unspecified; E66.9 Obesity, unspecified; E78.00 Pure hypercholesterolemia, unspecified; F32.A Depression, unspecified; F90.9 Attention-deficit hyperactivity disorder, unspecified type; G35 Multiple sclerosis; G43.909 Migraine, unspecified, not intractable, without status migrainosus; F17.290 Nicotine dependence, other tobacco product, uncomplicated; G89.29 Other chronic pain; Z95.5 Presence of coronary angioplasty implant and graft; Z86.011 Personal history of benign neoplasm of the brain; Z79.899 Other long term (current) drug therapy; Z79.82 Long term (current) use of aspirin; Z20.822 Contact with and (suspected) exposure to COVID-19; Z79.84 Long term (current) use of oral hypoglycemic drugs; Z68.29 Body mass index [BMI] 29.0-29.9, adult
CPT/HCPCS: 71046; 80048; 80053; 80202; 82248; 82805; 82962; 83036; 83735; 83880; 84100; 84145; 84484; 85025; 85027; 86803; 87040; 87070; 87205; 87324; 87449; 87502; 87641; 87798; 87811; 93005; 94640; 96361; 96374; 96375; 97161; 99285

== ENCOUNTER → 2025-02-21 09:08 | Outpatient (REF) | payer MEDICARE, SELFPAY | LOC: RAD 09:08 | PROVIDERS: ATTENDING PHYSICIAN Registered Nurse; FAMILY PHYSICIAN Family Medicine | DX: I77.9 Disorder of arteries and arterioles, unspecified (principal) | CPT/HCPCS: 93922; 93925 ==

== ENCOUNTER 2025-04-23 09:57 | Inpatient (IN) | payer OTHER, SELFPAY ==
[2025-04-23] VITALS (17 sets, daily range): BP systolic 89–155; BP diastolic 49–88; BMI 33.5; BMI 35.0
[2025-04-23] MEDS: TYLENOL 650 MG PO (03:00)
[2025-04-23 03:09] LABS: Hematocrit 41.3 % (37.0-47.0); Hemoglobin 13.4 g/dL (12.0-16.0); Mean Corp Hgb Conc. 32.4 g/dL (33.0-37.0); Mean Corpuscular Volume 92.0 fL (81.0-99.0); Nucleated Red Blood Cells % 0 %; Platelet Count 233 10^3/uL (130-400); Red Cell Dist. Width 13.5 % (11.5-14.5)
[2025-04-23 03:26] LABS: ALT (SGPT) 13 U/L (0-35); AST (SGOT) 14 U/L (14-36); Albumin 3.5 g/dl (3.5-5.0); Alkaline Phosphatase 114 U/L (38-126); Blood Urea Nitrogen 25 mg/dl (7-17); Calcium 8.0 mg/dl (8.4-10.2); Carbon Dioxide 26 mmol/L (22-30); Chloride 104 mmol/L (98-107); Estimated Creatinine Clearance 47 ml/min; Glucose 247 mg/dl (70-99); Potassium 3.5 mmol/L (3.5-5.1); Sodium 138 mmol/L (135-145); Total Protein 6.4 g/dl (6.3-8.2); eGFR 41.49
[2025-04-23 04:10] LABS: Urine Character Clear (Clear)
[2025-04-23 04:28] LABS: Urine White Cell 21-25 /HPF (0-5)
[2025-04-23] MEDS: NSS 1800 ML IV (04:45)
--- NOTE | 2025-04-23 05:17 | ED.GENMED ---
History of Present Illness
General
Chief Complaint: Fever
Source: patient
Exam Limitations: none
Time Seen by Provider: 04/23/25 04:56
Nursing documentation reviewed up to this point in time: agreed with
History of Present Illness
History of Present Illness:
Note:
CHIEF COMPLAINT(S)
Urinary symptoms, burning sensation, back pain, and diarrhea.
HISTORY OF PRESENT ILLNESS
The patient is a 64-year-old female with a history of asthma, COPD, diabetes and a single kidney (congenital absence of one kidney) who presents with urinary symptoms including burning sensation and right-sided back pain, which has been ongoing for
approximately one year. Urinary frequency and dysuria started the past few days. Recently, she has also experienced diarrhea persisting all day and the previous day, leading to feelings of weakness and shaking in her hands. She was unaware of having
a fever. The patient reports severe neuropathic pain in her feet, describing it as difficult to walk due to the pain. Pain relief medications like Gabapentin have been ineffective, and she has been on oxycodone for pain control. Despite these
symptoms, there is an absence of abdominal pain. She has not had any vomiting. The patient denies a history of kidney stones but presents with fever and systemic symptoms warranting intravenous antibiotics.
PAST SURGICAL HISTORY
The patient reports having a previous surgery with 72 bre on her leg.
MEDICATIONS
- Gabapentin for neuropathy
- Oxycodone for pain control
PHYSICAL EXAM
- Nursing notes reviewed and vital signs reviewed.
PHYSICAL EXAM
General: Patient is well appearing and in no acute distress; non-toxic
Skin: Warm and dry, no rashes or lesions
Head: Normocephalic, atraumatic
Eyes: Sclera non-icteric. EOMs intact.
Cardiac: Regular rate and rhythm, no murmurs
Peripheral Vascular: No lower extremity or edema
Pulm: Normal respiratory effort, no wheezes, rales, or rhonchi
Abdomen: No abdominal tenderness to palpation; no CVA tenderness
Neuro: CN II-XII intact, no focal neurologic deficits.
Psychiatric: Appropriate mood and affect.
PLAN
- Administration of intravenous antibiotics for suspected urinary tract infection.
- Plan to keep the patient in the hospital for antibiotic administration.
- A computed tomography scan to rule out urinary tract obstruction or stones.
- Pain management
- Stool cultures
- Blood cultures, lactic acid
DIFFERENTIAL DIAGNOSIS
The Differential Diagnosis includes, in no particular order and is not limited to:
1. Urinary Tract Infection
2. Nephrolithiasis (Kidney Stones)
3. Pyelonephritis
4. Neuropathic Pain
5. Diabetic Neuropathy
6. Gastroenteritis
7. Dehydration
8. Sepsis
9. Renal Complications from Single Kidney
10. Lumbar Radiculopathy
Disposition:
SUMMARY OF ENCOUNTER
The patient is a 64-year-old female with a past medical history of coronary artery disease, asthma, and chronic obstructive pulmonary disease (COPD) who presented to the emergency department with urinary symptoms and a generalized feeling of being
unwell over the past few days. Upon arrival, the patient was febrile and exhibited signs of leukocytosis, elevated blood urea nitrogen (BUN) and creatinine ratio, and elevated lactic acid, urinalysis indicating a urinary tract infection. She was
immediately given intravenous fluids. A chest x-ray was performed and was negative for any acute cardiopulmonary process. A CT scan of the abdomen revealed mild left perirenal stranding but no urinary obstruction. During her visit, the patient
developed voluminous diarrhea, prompting stool cultures to rule out Clostridioides difficile (C. diff) and other etiologies.
DISPOSITION
Admit
ASSESSMENT
The patient presents with a urinary tract infection as evidenced by urinary symptoms, leukocytosis, and elevated BUN and creatinine ratio. The presence of fever and elevated lactic acid raises concern for systemic infection. Due to the development
of diarrhea, there is also consideration for a gastrointestinal infection or C. diff. The absence of urinary obstruction was confirmed via CT scan.
PLAN
The patient will be admitted for intravenous antibiotic therapy and further management of her urinary tract infection. Stool cultures have been sent to identify any potential infectious agents responsible for her diarrhea.
INDEPENDENT REVIEW OF LABS AND INTERPRETATION OF TESTS
- My independent review of the complete blood count (CBC) shows leukocytosis.
- My independent review of the basic metabolic panel (BMP) indicates an elevated BUN and creatinine ratio.
- My independent review of lactic acid levels reveals elevation.
- My independent review of the chest x-ray interpretation shows no acute cardiopulmonary process.
- My independent interpretation of the abdominal CT scan indicates mild left perirenal stranding with no urinary obstruction.
MEDICATION RECONCILIATION
- IV fluids administered in the emergency department.
- Rocephin
MEDICAL DECISION MAKING
- Number and Complexity of Problems Addressed: Chronic conditions affecting care include coronary artery disease, asthma, and COPD. The differential diagnosis includes urinary tract infection, pyelonephritis, sepsis, dehydration, renal complications
from a single kidney, and gastroenteritis.
- Data:
Category 1
- Lab tests ordered: CBC, BMP, lactic acid levels, blood cultures.
- Imaging: Chest x-ray and abdominal CT scan were independently reviewed and interpreted.
- Risk:
- Prescription drug management for intravenous antibiotic therapy.
- Decision regarding diagnostic testing with the risk of contrast from the CT scan.
DIAGNOSIS
- Urinary tract infection (N39.0)
- Suspected sepsis (R65.20)
- Diarrhea (R19.7)
Past History
Past History
ED Past Medical History: Asthma, CAD, HTN, Hypercholesterolemia, NIDDM, Psychiatric (Depression, ADHD) and Other (Knee problems, meningioma, migraines, ED)
ED Past Surgical History: Brain (Meningioma removal)
Social History
Tobacco: Smoker
Alcohol: None
Drug: None
Living: with family
Phy Exam
Physical Exam
Physical Exam:
see hpi
Sepsis
Sepsis Screening
Sepsis Assessment: Sepsis
Sepsis Screen
Sepsis Screen: Sepsis
Date: 04/23/25
Time: 10:41
Course
Orders/Labs/Results
Orders:
Orders
04/23/25 02:43
Electrocardiogram (*1) Urgent
Reason for Study: Other
Other Reason for Exam: Possible Sepsis
Cardiac Monitoring- Treatment ONCE
IV Insert/Care/Rem.- Treatment PRN
Straight cath- Treatment ONCE
O2 Therapy [RESP] Urgent
Titrate/Wean O2 to maintain O2 sat greater than (%): 93
Special Instructions: TO MAINTAIN CONTINUOUS O2 SATS > OR = 93%
Pulse Ox/cont/shift [RESP] Urgent
Quantity: 1
Special Instructions: CONTINUOUS
04/23/25 02:44
EKG- Treatment ONCE
CR Chest - 2 Views Urgent
Comment:
Reason For Exam: suspected infection
04/23/25 02:45
Complete Blood Count/With Diff Urgent
Comprehensive Metabolic Panel Urgent
Glycohemoglobin (HgbA1c) Urgent
Blood Culture Q20M
DOM Source: Blood/Venous
Specimen Description:
Comment: Urgent from separate sites. If patient screens positive for possible sepsis
Blood Culture Q20M
DOM Source: Blood/Venous
Specimen Description:
Comment: Urgent from separate sites. If patient screens positive for possible sepsis
04/23/25 02:46
Lactic Acid Q4H
Comment: ON ICE, CANCEL 2ND ORDER IF FIRST LACTIC ACID LEVEL <2
Urinalysis Reflex To Culture Urgent
Date Specimen was Collected: 04/23/25
Time Specimen was Collected: 02:44
Urine Microscopic Reflex Cult Urgent
Urine Culture Urgent
DOM Source: U
Specimen Description:
Date Specimen was Collected: 04/23/25
Time Specimen was Collected: 02:44
04/23/25 02:58
Acetaminophen [Tylenol] 650 mg .ROUTE .STK-MED ONE
04/23/25 02:59
Acetaminophen [Tylenol] 650 mg PO NOW STA
04/23/25 04:37
0.9% Sodium Chloride 1000 ml [Nss] 1,800 ml IV NOW STA
04/23/25 05:11
CT Abd/pel Without Iv Or Oral Urgent
Comment:
Reason For Exam: flank pain, UTI
04/23/25 05:12
CefTRIAXone [Rocephin] 2,000 mg IV NOW STA
04/23/25 06:26
C difficile Antigen & Toxins Urgent
DOM Source: Feces/Stool
Specimen Description:
Date Specimen was Collected: 04/23/25
Time Specimen was Collected: 06:24
Stool Culture Urgent
DOM Source: Feces/Stool
Specimen Description:
Date Specimen was Collected: 04/23/25
Time Specimen was Collected: 06:24
04/23/25 06:39
Lactic Acid Q4H
Comment: ON ICE, CANCEL 2ND ORDER IF FIRST LACTIC ACID LEVEL <2
04/23/25 07:17
0.9% Sodium Chloride 1000 ml [Nss] 1,000 ml IV BOLUS
04/23/25 08:41
Admit/Transfer Patient As Directed
Co-Sign Provider:
Level of Care: Inpatient admission
Assign to:: Medical/Surgical
Physician / Group: Hospitalist
Diagnosis: Sepsis secondary to UTI
Reason for Hospitalization: as above
Expected length of stay greater than two midnights?: Yes
ELOS- Estimated Length of Stay in days: 3
I certify the patient meets the requirements for IP care: Yes
04/23/25 08:42
PRN Pain Medication Management As Directed
May give lesser potent ordered pain med per pt: Yes
preference::
Protocol:: Medication orders for pain may be administered in a
manner that supports deferring to patient preference
when the pt is:
- Requesting an ordered lesser potent pain medication.
Least to most potent pain medications are defined
as: acetaminophen < NSAID < tramadol < opioids
(morphine, oxycodone, hydromorphone).
- Requesting a lesser dose of the same medication IF
ORDERED.
- Requesting a less intrusive route of administration
if both routes are prescribed by the provider (PO <
IV).
04/23/25 08:44
Code Status As Directed
Resuscitation Status: Full Code
Abnormal Lab Results
04/23/25 04/23/25
02:45 02:46
WBC 16.1 H 10^3/uL
(4.8-10.8)
MCHC 32.4 L g/dL
(33.0-37.0)
MPV 10.6 H fL
(7.4-10.4)
Abs Immat Gran (auto) 0.1 H 10^3/uL
(0-0.05)
Absolute Neuts (auto) 14.1 H 10^3/uL
(1.4-6.5)
Immature Gran % 0.6 H %
(0-0.5)
Neutrophils % 87.9 H %
(42.2-75.2)
Lymphocytes % 7.7 L %
(20.5-51.1)
BUN 25 H mg/dl
(7-17)
Creatinine 1.4 H mg/dL
(0.6-1.0)
Glucose 247 H mg/dl
(70-99)
Lactic Acid 2.8 H mmol/L
(0.7-2.0)
Calcium 8.0 L mg/dl
(8.4-10.2)
Ur Occult Blood Reflex 2+ A
(Negative)
Leukocyte Esterase Rfl 2+ A
(Negative)
Urine RBC 7-10 A /HPF
(0-2)
Urine WBC (Reflex) 21-25 A /HPF
(0-5)
Urine Bacteria (Reflex) Moderate A
(Negative)
Urine Glucose 4+ A
(Negative)
Urine Albumin (Reflex) 4+ A
(Neg - Trace)
04/23/25 02:45
04/23/25 02:45
Vital Signs
Initial and Last Documented VS:
Initial Vital Signs
Temp Pulse Resp BP Pulse Ox
102.8 F H 85 18 134/56 93
04/23/25 02:47 04/23/25 02:47 04/23/25 02:47 04/23/25 02:47 04/23/25 02:47
Last Documented Vital Signs
Temp Pulse Resp BP Pulse Ox
99.1 F 66 12 114/49 96
04/23/25 05:28 04/23/25 10:32 04/23/25 10:32 04/23/25 10:32 04/23/25 10:32
*Pulse Oximetry
SaO2: 93
Nasal Cannula flow liters per minute: 2
Patient hypoxic: no
*Critical Care Note
Total Time (30-74mins, 75-104mins- exclusive of procedures): Not Applicable
ED Attending Note
-
Portions of this chart may have been created with voice recognition software.� Occasional wrong word or��sound alike� substitutions may have occurred due to the inherent limitations of voice recognition software.
Discharge Plan
Departure
Patient Disposition: Admit
Date of Disposition: 04/23/25
Time of Disposition: 07:07
Admit to: Med/Surg
Presentation/result/management discussed w/ accepting MD/DO: Hospitalist
Patient with high blood pressure during this ER visit?: Yes
Condition: Fair
Discharge Problem:
Urinary tract infection, Sepsis, Diarrhea
Interventions
Interventions:
*Risk Screen - Suicide Last Done: 04/23/25 02:47
*General Assessment Last Done: 04/23/25 02:47
*Neglect/Abuse Screening Last Done: 04/23/25 02:47
*ED- Fall Risk Assessment Last Done: 04/23/25 08:56
*ED COVID-19 Vaccine History Last Done: 04/23/25 02:55
*Nursing Disposition Last Done: 04/23/25 08:56
ED- Neurological Assessment Last Done: 04/23/25 02:58
ED-Skin Assessment Last Done: 04/23/25 03:03
[2025-04-23] MEDS: ROCEPHIN 2000 MG IV (05:23)
[2025-04-23] MEDS: NSS 1000 IV ×3 (07:26→22:54)
--- NOTE | 2025-04-23 07:59 | HPS.HSE ---
Family Physician
-
Family Physician: Balwinder Luis
Chief Complaint
-
Diarrhea
History of Present Illness
This is a 64-year-old female with past medical history of T2DM, CAD, chronic lower back pain with chronic narcotic dependency, multiple sclerosis, atrophic right kidney who presents to ED complaining of watery diarrhea ongoing for the past 2
days. In addition patient admits to dysuria also ongoing for the past 2 days. She reports 4-6 bowel movements per day, intermittent watery diarrhea episodes. Diarrhea is watery, nonbloody, no mucous. She has noted foul smell with the diarrhea.
In addition she admits fever, bloating and gassiness. She denies sick contacts in the house. She denies antibiotic, PPI use. She denies unintentional weight loss.
In addition, patient reports urinary symptoms including dysuria, urgency and frequency. She denies blood in the urine. She denies flank pain. She admits to fever, chills that started this morning.
Upon presentation to the ED, labs with WBC 16.1, BMP with creatinine 1.4, glucose 247, lactic acid 2.8 on presentation. Urinalysis positive. She was evaluated with a chest x-ray which showed no acute cardiopulmonary process. She was further
evaluated with abdominal pelvic CT. In the ED she was started on ceftriaxone. Patient will be admitted
Medical History
Past Medical History
Past Medical History: Reports Other (T2DM, chronic narcotic dependence, migraine, mood disorder, COPD, chronic smoker, CKD stage III, chronic lower back pain, MS, hypertension, hyperlipidemia, obesity, vitamin D deficiency, ADHD, meningioma,
atrophic kidney, CAD s/p stent, GERD, right foot drop)
Past Surgical History: Reports Other (Cardiac catheterization, meningioma cyst s/p resection 2014)
Social History
Tobacco: Former Smoker
Alcohol: None
Drug: None
Personal: Single
Living: With Family
Family History
Family History: Not pertinent
Allergies / Home Medications
Allergies reflects when Allergies were last updated in [employer] [facility].
Home Medications with original date entered in [employer] [facility]
Allergy/Medication List:
Allergies
Allergy/AdvReac Type Severity Reaction Status Date / Time
codeine Allergy Unknown Verified 10/04/24 12:58
ibuprofen Allergy Hives Verified 10/04/24 16:21
naproxen sodium (From Aleve) Allergy Hives Verified 10/04/24 12:58
Home Medications
aspirin 81 mg chewable tablet 81 mg PO DAILY Blood clot prevention/tx 01/20/21
atorvastatin 80 mg tablet 80 mg PO HS High cholesterol 01/20/21
albuterol sulfate 90 mcg/actuation aerosol inhaler 2 puff inhalation R Q4HPRN PRN SOB/wheezing #1 g 10/26/22
dextroamphetamine-amphetamine 20 mg tablet (Adderall) 20 mg PO TID Neurological Condition 10/04/24
empagliflozin 25 mg tablet (Jardiance) 25 mg PO DAILY Diabetes 10/04/24
gabapentin 300 mg capsule 300 mg PO TID Pain 10/04/24
metformin 500 mg tablet,extended release 24 hr 500 mg PO QPM Diabetes 10/04/24
oxycodone 15 mg tablet 15 mg PO Q6HPRN PRN severe pain 10/04/24
paroxetine HCl 40 mg tablet (Paxil) 60 mg PO QPM Mental Health 10/04/24
amlodipine 5 mg tablet 5 mg PO DAILY #30 tabs 10/08/24
empagliflozin 25 mg tablet (Jardiance) 25 mg PO DAILY 04/23/25
zolpidem 10 mg tablet (Ambien) 10 mg PO HS 04/23/25
Review of Systems
-
History Source: Patient
A 12 point ROS was completed and negative except as noted: Yes
Constitutional: Reports Other (Review of system completed and negative except those documented in HPI)
Physical Exam
Vital Signs
Vital Signs
Temp Pulse Resp BP Pulse Ox
99.1 F 87 15 91/56 96
04/23/25 05:28 04/23/25 06:52 04/23/25 06:52 04/23/25 06:52 04/23/25 06:52
Physical Exam
General: Well Developed and No Apparent Distress
Respiratory: Clear
Cardiac: S1/S2 and Regular Rhythm
GI: Soft, Non Tender, Non Distended and Normal Bowel Sounds
Musculoskeletal: No Edema
Skin: Warm and Dry
Neuro: Awake, Alert, Oriented and AO x 3
Psych: Calm
Laboratory Results
-
04/23/25 02:45
04/23/25 02:45
Laboratory Results
Lactic Acid 1.6 mmol/L (0.7-2.0) 04/23/25 06:39
Total Bilirubin 1.3 mg/dl (0.2-1.3) 04/23/25 02:45
AST 14 U/L (14-36) 04/23/25 02:45
ALT 13 U/L (0-35) 04/23/25 02:45
Alkaline Phosphatase 114 U/L (38-126) 04/23/25 02:45
Impression/Plan
-
Assessment/plan
#Severe sepsis secondary to UTI
-Lactic acid upon presentation 2.8
-CT A/P- No findings to suggest left-sided obstructive uropathy. Mild left perinephric stranding slightly increased in comparison to prior study. Cannot exclude left renal infection. Incompletely distended urinary bladder with at least relative
diffuse wall thickening. Small bubbles of air in the urinary bladder which is not the sequela of recent bladder catheterization, infection should be considered.
-started on ceftriaxone in the ED, will continue ceftriaxone at this time
-Blood cultures ordered in ED, pending
-IV fluids
#Acute diarrhea
-New onset diarrhea x 2 days ago
-Check stool studies, including C. difficile
-Continue Rocephin as above for UTI, adjust abx after stool studies return
-Probiotics
-IV fluids
#CKD 3
-Atrophic right kidney
-Currently at baseline creatinine 1.4
-Monitor creatinine daily
-Avoid nephrotoxin
#T2DM
-Hold metformin, Jardiance
-Coverage with SSI
-Update A1c
#Chronic back pain
-Continue oxycodone, gabapentin
#COPD
-CXR in the ED- No acute cardiopulmonary process
-Not in acute exacerbation
-Continue albuterol
-Incentive spirometer
#Depression
-Continue paroxetine
-Zolpidem at bedtime
#Hypertension
-Continue Amlodipine with Holding parameters
#ADD
-Continue Adderall
#CAD s/p stents
-Denies acute chest pain
-Continue aspirin, statin
#Obesity BMI 33
-Affects all aspects of care
CODE STATUS full code
DVT prophylaxis heparin subcu
--- NOTE | 2025-04-23 09:57 | W.PN.UPDATE ---
Update Note
Progress Note Update
I personally performed a history and physical exam of the patient and discussed management with the resident. I reviewed the resident's note and agree with the documented findings and plan of care HPI/CC.
Patient is a pleasant 64 years old female with history of diabetes, coronary artery disease who came to the ER with watery diarrhea for 2 days associated with dysuria and polyuria and found to have evidence of sepsis with UTI, started on Rocephin
and will be admitted under hospitalist.
Physical exam:
GENERAL : Patient is awake, alert, oriented x3
HEENT: Nonicteric sclerae, PERRLA, EOMI. Oropharynx clear. Moist mucous membranes. Conjunctivae appear well perfused.
CHEST: Chest wall is nontender.
HEART: Regular rate and rhythm without murmurs.
LUNGS: Clear to auscultation bilaterally.
ABDOMEN: Soft, positive bowel sounds, nontender, no organomegaly.
RECTAL: Deferred.
SKIN: No rash, no excessive bruising, petechiae, or purpura.
NEUROLOGIC: Cranial nerves II-XII intact without motor/sensory deficit.
Assessment/plan:
Severe sepsis with acute organ dysfunction secondary to UTI
Meets sepsis criteria on admission with leukocytosis and fever
meets acute organ dysfunction with elevated lactic acid.
Started on Rocephin, continue
Urine culture pending
IVF
Acute diarrheal illness.
Rule out C. difficile.
Started probiotic.
IVF
CKD 3
Avoid nephrotoxins
Diabetes
Insulin sliding scale
--- NOTE | 2025-04-23 11:03 | EDRN ---
admission orders were processed by this RN, this RN called pharmacy and notified them
--- NOTE | 2025-04-23 11:25 | CM ---
CM reviewed chart and met with pt bedside in ED. Lives in 2 story home with her sister and nephew. [address]. Pt states has first floor BR/full BA, does not go upstairs.
Independent in ADLs and personal care at baseline, uses walker. No longer drives.
Confirms prescription coverage
Hx [facility]/ no hx SNF
PCP: Balwinder Luis
Pharmacy: [facility]
Discharge plan: Anticipate home pending ongoing medical evaluation
[2025-04-23 11:30] LABS: Glycohemoglobin (HgbA1c) 9.9 % (4.0-5.6)
[2025-04-23 13:04] LABS: Glucose - Point of Care 196 mg/dl (70-99)
[2025-04-23] MEDS: VISBIOME 2 CAP PO (13:09)
[2025-04-23] MEDS: NOVOLOG FLEXPEN-MODERATE RESISTANCE 1 UNITS SC (13:10)
--- NOTE | 2025-04-23 13:37 | EDRN ---
this RN called the receiving unit and notified them that paper report was going to be tubed up
[2025-04-23 17:11] LABS: Glucose - Point of Care 247 mg/dl (70-99)
[2025-04-23] MEDS: ADDERALL 20 MG PO (17:11)
[2025-04-23] MEDS: GLUCOPHAGE XR EXTENDED RELEASE 500 MG PO (17:11)
[2025-04-23] MEDS: NEURONTIN 300 MG PO ×2 (17:11→20:57)
[2025-04-23] MEDS: PAXIL 60 MG PO (17:51)
[2025-04-23] MEDS: NOVOLOG FLEXPEN-MODERATE RESISTANCE 3 UNITS SC (17:52)
[2025-04-23] MEDS: ROXICODONE 15 MG PO (20:57)
[2025-04-23] MEDS: HEPARIN 5000 UNITS SC (20:59)
[2025-04-23] MEDS: MONISTAT 7 VAGINAL CREAM 1 APPLIC VAG (21:01)
[2025-04-23] MEDS: LIPITOR 80 MG PO (21:02)
[2025-04-23 21:31] LABS: Glucose - Point of Care 268 mg/dl (70-99)
[2025-04-23] MEDS: AMBIEN 10 MG PO (22:18)
[2025-04-24] MEDS: ROCEPHIN 2000 MG IV (06:16)
[2025-04-24] MEDS: STERILE WATER FOR INJECTION 20 ML IV (06:17)
[2025-04-24] MEDS: NSS 1000 IV ×2 (06:35→11:42)
[2025-04-24 08:09] LABS: Glucose - Point of Care 171 mg/dl (70-99)
[2025-04-24 08:26] VITALS: BP 149/60
[2025-04-24] MEDS: NOVOLOG FLEXPEN-MODERATE RESISTANCE 1 UNITS SC (08:35)
[2025-04-24] MEDS: NORVASC 5 MG PO (08:38)
[2025-04-24] MEDS: VISBIOME 2 CAP PO (08:45)
[2025-04-24] MEDS: HEPARIN 5000 UNITS SC ×2 (08:45→21:19)
[2025-04-24] MEDS: NEURONTIN 300 MG PO ×3 (08:46→21:19)
[2025-04-24] MEDS: LOW STRENGTH ASPIRIN 81 MG PO (08:46)
[2025-04-24] MEDS: ADDERALL 20 MG PO ×3 (08:50→17:07)
[2025-04-24 08:57] LABS: Hematocrit 32.0 % (37.0-47.0); Hemoglobin 10.4 g/dL (12.0-16.0); Mean Corp Hgb Conc. 32.5 g/dL (33.0-37.0); Mean Corpuscular Volume 93.8 fL (81.0-99.0); Nucleated Red Blood Cells % 0 %; Platelet Count 181 10^3/uL (130-400); Red Cell Dist. Width 13.9 % (11.5-14.5)
[2025-04-24 09:00] LABS: ALT (SGPT) 12 U/L (0-35); AST (SGOT) 21 U/L (14-36); Albumin 2.6 g/dl (3.5-5.0); Alkaline Phosphatase 91 U/L (38-126); Blood Urea Nitrogen 23 mg/dl (7-17); Calcium 7.5 mg/dl (8.4-10.2); Carbon Dioxide 23 mmol/L (22-30); Chloride 112 mmol/L (98-107); Estimated Creatinine Clearance 48 ml/min; Glucose 175 mg/dl (70-99); Potassium 3.7 mmol/L (3.5-5.1); Sodium 141 mmol/L (135-145); Total Protein 4.9 g/dl (6.3-8.2); eGFR 41.49
--- NOTE | 2025-04-24 11:07 | CM ---
Home no needs.
Plan; Home with sister, no needs.
[2025-04-24] MEDS: ROXICODONE 15 MG PO ×2 (11:44→21:18)
[2025-04-24 12:13] LABS: Glucose - Point of Care 229 mg/dl (70-99)
[2025-04-24] MEDS: NOVOLOG FLEXPEN-MODERATE RESISTANCE 3 UNITS SC ×2 (12:21→16:56)
--- NOTE | 2025-04-24 12:25 | W.PN.HOSP.TC ---
Today's Communication/Plan
-
Pending urine culture, will discharge tomorrow
Assessment / Plan
Assessment / Plan
Impression:
Patient is a pleasant 64 years old female with history of diabetes, coronary artery disease who came to the ER with watery diarrhea for 2 days associated with dysuria and polyuria and found to have evidence of sepsis with UTI, started on Rocephin
and will be admitted under hospitalist.
Urine culture came back E. coli.
Assessment/plan:
Severe sepsis with acute organ dysfunction secondary to UTI
Meets sepsis criteria on admission with leukocytosis and fever
meets acute organ dysfunction with elevated lactic acid.
Started on Rocephin, continue
Urine culture pending
IVF
04/24
Urine culture came back shows E. coli.
Continue Ceftin for now.
Leukocytosis improved.
No further fever
Will add fluconazole one-time for possible vaginal Adeline
Acute diarrheal illness.
Rule out C. difficile.
Started probiotic.
CKD 3
Avoid nephrotoxins
Type 2 diabetes
-Hold metformin, Jardiance
-Coverage with SSI
-Hemoglobin A1c 9.9
Chronic back pain
-Continue oxycodone, gabapentin
COPD
-CXR in the ED- No acute cardiopulmonary process
-Not in acute exacerbation
-Continue albuterol
-Incentive spirometer
Depression
-Continue paroxetine
-Zolpidem at bedtime
Hypertension
-Continue Amlodipine with Holding parameters
ADD
-Continue Adderall
CAD s/p stents
-Denies acute chest pain
-Continue aspirin, statin
Obesity BMI 33
-Affects all aspects of care
CODE STATUS: Full code
DVT prophylaxis: Heparin
Diet:DM diet
Disposition: Pending urine culture
Total time spent on today's encounter was 65 minutes which included time spent in counseling the patient/family regarding diagnosis and treatment plan as listed above, goals of care, and symptom management. Case was discussed with nursing staff,
specialists, and care coordinators/case management. All labs and imaging personally reviewed by me. Remainder the time spent in detailed review of previous records, lab data, imaging, and other medical provider documentation.
Anticipated Discharge: Within 24 hours
Subjective/Interval History
-
Date of Service: April 24, 2025
Patient seen and examined at bedside, denies any chest pain or shortness of breath, no abdominal pain, no nausea, no vomiting, no diarrhea or constipation.
Objective Data
-
Labs:
Laboratory Results
04/24/25
08:06
WBC 9.2
Hgb 10.4 L D
Hct 32.0 L
Plt Count 181 D
Sodium 141
Potassium 3.7
Chloride 112 H
Carbon Dioxide 23
BUN 23 H
Creatinine 1.4 H
Glucose 175 H
Calcium 7.5 L
Total Bilirubin 0.9
AST 21
ALT 12
Alkaline Phosphatase 91
Vital Signs:
Vital Signs
Temp Pulse Resp BP Pulse Ox
98 F 80 17 149/60 97
04/24/25 08:26 04/24/25 08:26 04/24/25 08:26 04/24/25 08:26 04/24/25 08:50
I&O
04/23/25 04/24/25 04/25/25
06:59 06:59 06:59
Intake Total 480 / 480
Output Total 100 / 100
Balance -100 / -100 480 / 480
Physical Exam
-
General: Well Developed, Well Nourished, No Apparent Distress and Comfortable
HEENT: Normocephalic, Atraumatic, Moist Mucous Membranes, No Ptosis, PERRLA and Nose Appears Normal
Respiratory: Clear to Auscultation and Non Labored Respirations
Cardiac: Regular Rhythm and S1/S2
Breast: Deferred by me
GI: Soft, Nontender, Nondistended and Normal Bowel Sounds
Genito-urinary: No Costovertebral Tender
Musculoskeletal: No Clubbing, No Cyanosis and No Edema
Skin: Warm
Neuro: Awake, Alert, Oriented, AO x 3 and No Motor Deficits
Psych: Calm
Data Reviewed
-
Diagnostic Radiology: Image personally visualized and interpreted and Report Reviewed by me
CT Scan: Image personally visualized and interpreted and Report Reviewed by me
Ultrasound: Image personally visualized and interpreted and Report Reviewed by me
MRI: Image personally visualized and interpreted and Report Reviewed by me
Medical Tests (Nuc Med, Echo etc): Image personally visualized and interpreted and Report Reviewed by me
Labs: Labs Reviewed by me
Old Records: Reviewed
[2025-04-24 16:20] VITALS: BP 133/52
[2025-04-24 16:50] LABS: Glucose - Point of Care 200 mg/dl (70-99)
[2025-04-24] MEDS: GLUCOPHAGE XR EXTENDED RELEASE 500 MG PO (17:07)
[2025-04-24] MEDS: PAXIL 60 MG PO (17:08)
[2025-04-24] MEDS: LIPITOR 80 MG PO (21:19)
[2025-04-24] MEDS: AMBIEN 10 MG PO (21:19)
[2025-04-24] MEDS: MONISTAT 7 VAGINAL CREAM 1 APPLIC VAG (21:21)
[2025-04-24 21:37] LABS: Glucose - Point of Care 205 mg/dl (70-99)
[2025-04-24 23:21] VITALS: BP 172/81
[2025-04-25] MEDS: ROCEPHIN 2000 MG IV (05:49)
[2025-04-25] MEDS: STERILE WATER FOR INJECTION 20 ML IV (05:50)
[2025-04-25 07:23] LABS: Hematocrit 34.7 % (37.0-47.0); Hemoglobin 11.3 g/dL (12.0-16.0); Mean Corp Hgb Conc. 32.6 g/dL (33.0-37.0); Mean Corpuscular Volume 93.3 fL (81.0-99.0); Platelet Count 192 10^3/uL (130-400); Red Cell Dist. Width 13.8 % (11.5-14.5)
[2025-04-25 07:56] LABS: Glucose - Point of Care 152 mg/dl (70-99)
[2025-04-25 07:56] LABS: Blood Urea Nitrogen 20 mg/dl (7-17); Calcium 8.4 mg/dl (8.4-10.2); Carbon Dioxide 26 mmol/L (22-30); Chloride 107 mmol/L (98-107); Estimated Creatinine Clearance 52 ml/min; Glucose 148 mg/dl (70-99); Potassium 3.7 mmol/L (3.5-5.1); Sodium 140 mmol/L (135-145); eGFR 45.35
[2025-04-25 08:40] VITALS: BP 157/69
[2025-04-25] MEDS: NOVOLOG FLEXPEN-MODERATE RESISTANCE 1 UNITS SC (08:55)
[2025-04-25] MEDS: VISBIOME 2 CAP PO (08:55)
[2025-04-25] MEDS: NEURONTIN 300 MG PO (08:55)
[2025-04-25] MEDS: LOW STRENGTH ASPIRIN 81 MG PO (08:55)
[2025-04-25] MEDS: HEPARIN SC (08:55)
[2025-04-25] MEDS: DIFLUCAN 150 MG PO (08:55)
[2025-04-25] MEDS: NORVASC 5 MG PO (08:55)
[2025-04-25] MEDS: ADDERALL 20 MG PO ×2 (09:09→10:24)
--- NOTE | 2025-04-25 09:41 | CM ---
Chart reviewed and patient is for discharge to home when stable, no needs.
Plan; Home no needs when stable.
[2025-04-25] MEDS: ROXICODONE 15 MG PO (10:24)
[2025-04-25 11:56] LABS: Glucose - Point of Care 166 mg/dl (70-99)
--- NOTE | 2025-04-25 12:03 | W.PN.HOSP.TC ---
Today's Communication/Plan
-
Discharge home today
Assessment / Plan
Assessment / Plan
Impression:
Patient is a pleasant 64 years old female with history of diabetes, coronary artery disease who came to the ER with watery diarrhea for 2 days associated with dysuria and polyuria and found to have evidence of sepsis with UTI, started on Rocephin
and will be admitted under hospitalist.
Urine culture came back E. coli(pansensitive) will be discharged
Assessment/plan:
Severe sepsis with acute organ dysfunction secondary to UTI
Meets sepsis criteria on admission with leukocytosis and fever
meets acute organ dysfunction with elevated lactic acid.
Started on Rocephin, continue
Urine culture pending
IVF
04/24
Urine culture came back shows E. coli.
Continue Ceftin for now.
Leukocytosis improved.
No further fever
Will add fluconazole one-time for possible vaginal Adeline
04/25
Pansensitive E. coli.
Will be discharged on Ceftin.
Miconazole vaginal cream.
Acute diarrheal illness.
Rule out C. difficile.
Started probiotic.
CKD 3
Avoid nephrotoxins
Type 2 diabetes
-Hold metformin, Jardiance
-Coverage with SSI
-Hemoglobin A1c 9.9
Chronic back pain
-Continue oxycodone, gabapentin
COPD
-CXR in the ED- No acute cardiopulmonary process
-Not in acute exacerbation
-Continue albuterol
-Incentive spirometer
Depression
-Continue paroxetine
-Zolpidem at bedtime
Hypertension
-Continue Amlodipine with Holding parameters
ADD
-Continue Adderall
CAD s/p stents
-Denies acute chest pain
-Continue aspirin, statin
Obesity BMI 34.9
-Affects all aspects of care
CODE STATUS: Full code
DVT prophylaxis: Heparin
Diet:DM diet
Disposition: Discharge home today
Total time spent on today's encounter was 65 minutes which included time spent in counseling the patient/family regarding diagnosis and treatment plan as listed above, goals of care, and symptom management. Case was discussed with nursing staff,
specialists, and care coordinators/case management. All labs and imaging personally reviewed by me. Remainder the time spent in detailed review of previous records, lab data, imaging, and other medical provider documentation.
Anticipated Discharge: Today
Subjective/Interval History
-
Date of Service: April 25, 2025
Patient seen and examined at bedside, denies any chest pain or shortness of breath, no abdominal pain, no nausea, no vomiting, no diarrhea or constipation.
Objective Data
-
Labs:
Laboratory Results
04/25/25
06:21
WBC 7.6
Hgb 11.3 L
Hct 34.7 L
Plt Count 192
Sodium 140
Potassium 3.7
Chloride 107
Carbon Dioxide 26
BUN 20 H
Creatinine 1.3 H
Glucose 148 H
Calcium 8.4
Vital Signs:
Vital Signs
Temp Pulse Resp BP Pulse Ox
98.6 F 73 16 157/69 93
04/25/25 08:40 04/25/25 08:40 04/25/25 08:40 04/25/25 08:40 04/25/25 08:40
I&O
04/24/25 04/25/25 04/26/25
06:59 06:59 06:59
Intake Total 480 / 480
Balance 480 / 480
Physical Exam
-
General: Well Developed, Well Nourished, No Apparent Distress and Comfortable
HEENT: Normocephalic, Atraumatic, Moist Mucous Membranes, No Ptosis, PERRLA and Nose Appears Normal
Respiratory: Clear to Auscultation and Non Labored Respirations
Cardiac: Regular Rhythm and S1/S2
Breast: Deferred by me
GI: Soft, Nontender, Nondistended and Normal Bowel Sounds
Genito-urinary: No Costovertebral Tender
Musculoskeletal: No Clubbing, No Cyanosis and No Edema
Skin: Warm
Neuro: Awake, Alert, Oriented, AO x 3 and No Motor Deficits
Psych: Calm
Data Reviewed
-
Diagnostic Radiology: Image personally visualized and interpreted and Report Reviewed by me
CT Scan: Image personally visualized and interpreted and Report Reviewed by me
Ultrasound: Image personally visualized and interpreted and Report Reviewed by me
MRI: Image personally visualized and interpreted and Report Reviewed by me
Medical Tests (Nuc Med, Echo etc): Image personally visualized and interpreted and Report Reviewed by me
Labs: Labs Reviewed by me
Old Records: Reviewed
[2025-04-25 12:09] VITALS: BP 171/81
[2025-04-25] MEDS: NOVOLOG FLEXPEN-MODERATE RESISTANCE SC (12:09)
--- NOTE | 2025-04-26 16:09 | W.DCSUMMARY ---
Discharge Summary
Discharge Data
Date of Admission: 04/23/25
Date of Discharge: 04/25/25
Total time spent discharging patient (in min): 40
-
Pending Results: No
Hospital Course
Hospital course
Patient is a pleasant 64 years old female with history of diabetes, coronary artery disease who came to the ER with watery diarrhea for 2 days associated with dysuria and polyuria and found to have evidence of sepsis with UTI, started on Rocephin
and will be admitted under hospitalist.
Urine culture came back E. coli(pansensitive) will be discharged
During hospitalization patient was treated from the following
Severe sepsis with acute organ dysfunction secondary to UTI
Meets sepsis criteria on admission with leukocytosis and fever
meets acute organ dysfunction with elevated lactic acid.
Started on Rocephin, continue
Urine culture pending
IVF
04/24
Urine culture came back shows E. coli.
Continue Ceftin for now.
Leukocytosis improved.
No further fever
Will add fluconazole one-time for possible vaginal Adeline
04/25
Pansensitive E. coli.
Will be discharged on Ceftin.
Miconazole vaginal cream.
Acute diarrheal illness.
Rule out C. difficile.
Started probiotic.
CKD 3
Avoid nephrotoxins
Type 2 diabetes
-Hold metformin, Jardiance
-Coverage with SSI
-Hemoglobin A1c 9.9
Chronic back pain
-Continue oxycodone, gabapentin
COPD
-CXR in the ED- No acute cardiopulmonary process
-Not in acute exacerbation
-Continue albuterol
-Incentive spirometer
Depression
-Continue paroxetine
-Zolpidem at bedtime
Hypertension
-Continue Amlodipine with Holding parameters
ADD
-Continue Adderall
CAD s/p stents
-Denies acute chest pain
-Continue aspirin, statin
Obesity BMI 34.9
-Affects all aspects of care
CODE STATUS: Full code
DVT prophylaxis: Heparin
Diet:DM diet
Disposition: Discharge home today
Total time spent on today's encounter was 40 minutes which included time spent in counseling the patient/family regarding diagnosis and treatment plan as listed above, goals of care, and symptom management. Case was discussed with nursing staff,
specialists, and care coordinators/case management. All labs and imaging personally reviewed by me. Remainder the time spent in detailed review of previous records, lab data, imaging, and other medical provider documentation.
Anticipated Discharge: Today
Discharge Plan
-
Patient Disposition: Home (Routine Discharge)
Discharge Diagnosis/Procedures: UTI
Condition: Fair
Diet: Diabetic, Carb Controlled
Activity: As tolerated
Referrals:
Balwinder Luis DO [Family Provider, Family Practice]
Prescriptions:
New
miconazole nitrate 2 % Cream
1 appful vaginal HS Qty: 7 0RF
cefuroxime axetil 500 mg tablet
500 mg PO BID 5 Days Qty: 10 0RF
Continued
atorvastatin 80 MG tablet
80 mg PO HS
aspirin 81 MG tablet,chewable
81 mg PO DAILY
albuterol sulfate 90 mcg/actuation Hfa Aerosol Inhaler
2 puff inhalation R Q4HPRN PRN (Reason: SOB/wheezing) Qty: 1 0RF
oxycodone 15 mg Tablet
15 mg PO Q6HPRN PRN (Reason: severe pain)
metformin 500 mg Tablet Extended Release 24 Hr
500 mg PO QPM
Jardiance 25 mg Tablet
25 mg PO DAILY
dextroamphetamine-amphetamine [Adderall] 20 mg Tablet
20 mg PO TID
gabapentin 300 mg Capsule
300 mg PO TID
paroxetine HCl [Paxil] 40 mg Tablet
60 mg PO QPM
amlodipine 5 mg Tablet
5 mg PO DAILY Qty: 30 0RF
zolpidem [Ambien] 10 mg Tablet
10 mg PO HS
Discharge Orders:
Discharge Patient (As Directed); Ordered 04/25/25
Ordered By: Adela Major
Discharge Date and Time
Discharge Date/Time: 04/25/25 14:00
Print Language: ICELANDIC
== END 2025-04-25 14:00 | disposition home or self-care (01) | DRG 872 ==
LOC: 4 WEST ACU 09:57
PROVIDERS: Student in an Organized Health Care Education/Training Program; ADMITTING PHYSICIAN General Practice; EMERGENCY PHYSICIAN Emergency Medicine; FAMILY PHYSICIAN Family Medicine
DX: A41.51 Sepsis due to Escherichia coli [E. coli] (principal); N39.0 Urinary tract infection, site not specified; E87.20 Acidosis, unspecified; F11.20 Opioid dependence, uncomplicated; Q60.0 Renal agenesis, unilateral; R65.20 Severe sepsis without septic shock; Z68.34 Body mass index [BMI] 34.0-34.9, adult; E66.9 Obesity, unspecified; I25.10 Atherosclerotic heart disease of native coronary artery without angina pectoris; Z95.5 Presence of coronary angioplasty implant and graft; Z79.82 Long term (current) use of aspirin; Z79.899 Other long term (current) drug therapy; F32.A Depression, unspecified; G89.29 Other chronic pain; N18.30 Chronic kidney disease, stage 3 unspecified; E11.22 Type 2 diabetes mellitus with diabetic chronic kidney disease; I12.9 Hypertensive chronic kidney disease with stage 1 through stage 4 chronic kidney disease, or unspecified chronic kidney disease; E55.9 Vitamin D deficiency, unspecified; E78.00 Pure hypercholesterolemia, unspecified; F17.200 Nicotine dependence, unspecified, uncomplicated; F90.9 Attention-deficit hyperactivity disorder, unspecified type; G35 Multiple sclerosis; G43.909 Migraine, unspecified, not intractable, without status migrainosus; J44.89 Other specified chronic obstructive pulmonary disease; N26.1 Atrophy of kidney (terminal); Z79.84 Long term (current) use of oral hypoglycemic drugs; Z88.6 Allergy status to analgesic agent; Z88.5 Allergy status to narcotic agent
CPT/HCPCS: 71046; 74176; 80048; 80053; 81003; 81015; 82962; 83036; 83605; 85025; 85027; 87040; 87045; 87046; 87070; 87086; 87088; 87186; 87324; 87427; 87449; 93005; 94760; 96361; 96374; 99285

== ENCOUNTER 2025-08-09 17:29 | Emergency (ER) | payer OTHER, SELFPAY ==
[2025-08-09 17:37] VITALS: BP 124/83
--- NOTE | 2025-08-09 20:03 | ED.GENMED ---
History of Present Illness
General
Chief Complaint: Fall
Source: patient
Time Seen by Provider: 08/09/25 18:31
History of Present Illness
History of Present Illness:
64-year-old female with past medical history of previous brain tumor, asthma/COPD, CAD hyperlipidemia, [id number] diabetes presenting to the emergency department for evaluation after an accidental fall yesterday where she notes she was
leaving her doctor's office and her phone excellently fell out of her pocket, went down to pickle processor the phone but forgot to lock her walker and the walker slid out from under her causing her to fall onto the right side of her head/face and bilateral
knees. Today patient noted a headache accompanied with some bruising and swelling to the right periorbital region. She does take 81 mg of aspirin but no other blood thinning medications. No reported loss of consciousness, vomiting or visual
changes but she does note some mild photophobia. No other injuries noted.
Past History
Past History
ED Past Medical History: Asthma, CAD, HTN, Hypercholesterolemia, NIDDM, Psychiatric (Depression, ADHD) and Other (Knee problems, meningioma, migraines, ED)
ED Past Surgical History: Brain (Meningioma removal) and Orthopedic
Social History
Tobacco: Smoker
Alcohol: None
Drug: None
Personal:
Living: with family
Review of Systems
Review of Systems
All Other Systems: ROS reviewed and negative except as documented in HPI and ROS
Phy Exam
Physical Exam
Physical Exam:
GENERAL: Alert , in no apparent distress
EYE: conjunctiva clear, pupils 4mm b/l, EOMI, no entrapment
Head: Small ecchymosis/edema superolateral orbit. no breaks in skin
NECK: Supple, no midline ttp
ENT: mmm.
LUNGS: no acute respiratory distress
NEUROLOGICAL: Alert and oriented
SKIN: Warm and dry, skin intact.
MUSCULOSKELETAL: well perfused.
PSYCH: Normal and appropriate interaction.
Scores
Heart Failure Risk
Heart Failure Risk Score: Not Applicable
Heart Score for Chest Pain Patients
STEMI patient?: Not applicable
Withdrawal Assessment of Alcohol
Withdrawal Assessment Completed?: Not applicable
Course
Orders/Labs/Results
Orders:
Orders
08/09/25 17:40
Facial Bones wo Contrast CT [CT Facial Bones W/o Iv Contras] Urgent
Comment:
Reason For Exam: facial trauma
Head wo Contrast CT [CT Head W/o Iv Contrast] Urgent
Comment:
Reason For Exam: headstrike yesterday, blurry vision and headache
Vital Signs
Initial and Last Documented VS:
Initial Vital Signs
Temp Pulse Resp BP Pulse Ox
98.7 F 87 16 124/83 95
08/09/25 17:37 08/09/25 17:37 08/09/25 17:37 08/09/25 17:37 08/09/25 17:37
Last Documented Vital Signs
Temp Pulse Resp BP Pulse Ox
98.7 F 75 18 135/86 95
08/09/25 17:37 08/09/25 20:47 08/09/25 20:47 08/09/25 20:47 08/09/25 20:47
MDM/Problems Addressed
Differential Diagnosis Includes:
Concussion
Contusion
ICH
Orbital Fracture
MDM/Problems Addressed:
64-year-old female presenting to the emergency department for evaluation after an accidental mechanical fall resulting in mild head injury yesterday. Patient does take 81 mg aspirin but no other thinners. She is in no acute distress. CT of the
head and facial bones ordered. Disposition pending. Patient declining anything for pain.
*Radiology
Radiology exam reviewed: radiology read reviewed
*Pulse Oximetry
SaO2: 95
Oxygen Mode of Delivery: Room air
Patient hypoxic: no
*Critical Care Note
Total Time (30-74mins, 75-104mins- exclusive of procedures): Not Applicable
Patient Management
Escalation/DeEscalation of care consider admission/obs:
CT negative for any acute intracranial pathology. Stable for discharge home and aware of return precautions.
ED Attending Note
-
Portions of this chart may have been created with voice recognition software.� Occasional wrong word or��sound alike� substitutions may have occurred due to the inherent limitations of voice recognition software.
Discharge Plan
Departure
Patient Disposition: Home (Routine Discharge)
Date of Disposition: 08/09/25
Time of Disposition: 20:50
Patient with high blood pressure during this ER visit?: No
Discharge Problem:
Accidental fall, Contusion of right orbit
Instructions: Head Injury in Adults (DC)
Prescriptions:
No Action
atorvastatin 80 MG tablet
80 mg PO HS
aspirin 81 MG tablet,chewable
81 mg PO DAILY
albuterol sulfate 90 mcg/actuation Hfa Aerosol Inhaler
2 puff inhalation R Q4HPRN PRN (Reason: SOB/wheezing) Qty: 1 0RF
oxycodone 15 mg Tablet
15 mg PO Q6HPRN PRN (Reason: severe pain)
metformin 500 mg Tablet Extended Release 24 Hr
500 mg PO QPM
Jardiance 25 mg Tablet
25 mg PO DAILY
dextroamphetamine-amphetamine [Adderall] 20 mg Tablet
20 mg PO TID
gabapentin 300 mg Capsule
300 mg PO TID
paroxetine HCl [Paxil] 40 mg Tablet
60 mg PO QPM
amlodipine 5 mg Tablet
5 mg PO DAILY Qty: 30 0RF
zolpidem [Ambien] 10 mg Tablet
10 mg PO HS
miconazole nitrate 2 % Cream
1 appful vaginal HS Qty: 7 0RF
cefuroxime axetil 500 mg tablet
500 mg PO BID 5 Days Qty: 10 0RF
Referrals:
Balwinder Luis DO [Family Provider, Family Practice]
Interventions
Interventions:
*Risk Screen - Suicide Last Done: 08/09/25 17:37
*General Assessment Last Done: 08/09/25 20:14
*Nursing Disposition Last Done: 08/09/25 21:21
ED-Musculoskeletal Assessment Last Done: 08/09/25 20:14
ED- Neurological Assessment Last Done: 08/09/25 20:14
ED-Skin Assessment Last Done: 08/09/25 20:14
Discharge Date and Time
Discharge Date/Time: 08/09/25 21:21
Print Language: ANGOLAN
[2025-08-09 20:47] VITALS: BP 135/86
== END 2025-08-09 21:21 | disposition home or self-care (01) ==
LOC: EMR 17:29
PROVIDERS: EMERGENCY PHYSICIAN Emergency Medicine; FAMILY PHYSICIAN Family Medicine
DX: S00.11XA Contusion of right eyelid and periocular area, initial encounter (principal); Y92.531 Health care provider office as the place of occurrence of the external cause; W01.10XA Fall on same level from slipping, tripping and stumbling with subsequent striking against unspecified object, initial encounter; E11.9 Type 2 diabetes mellitus without complications; I25.10 Atherosclerotic heart disease of native coronary artery without angina pectoris; I10 Essential (primary) hypertension; E78.00 Pure hypercholesterolemia, unspecified; J44.89 Other specified chronic obstructive pulmonary disease; F32.A Depression, unspecified; F90.9 Attention-deficit hyperactivity disorder, unspecified type; F17.200 Nicotine dependence, unspecified, uncomplicated; Z79.82 Long term (current) use of aspirin; Z79.84 Long term (current) use of oral hypoglycemic drugs; Z86.011 Personal history of benign neoplasm of the brain
CPT/HCPCS: 99284; 70450; 70486